=== PATIENT | male | born 1985 ===

== ENCOUNTER 2020-06-22 08:47 | Inpatient (IN) | payer BC ==
[2020-06-22] MEDS ORDERED: MELATONIN 3 MG TABLET PO PRN (10:30)
[2020-06-22] MEDS ORDERED: LOPERAMIDE 2 MG (IMODIUM) TABLET PO PRN (10:30)
[2020-06-22] MEDS ORDERED: CALCIUM CARBONATE 500 MG (TUMS) TAB.CHEW PO PRN (10:30)
[2020-06-22] MEDS ORDERED: FLEET ENEMA ADULT 1 EA BTL PR PRN (10:30)
[2020-06-22] MEDS ORDERED: ONDANSETRON 4 MG (ZOFRAN) ORAL DISSOLVE TAB PO PRN (10:30)
[2020-06-22] MEDS ORDERED: diphenhydrAMINE 25 MG TAB (BENADRYL) PO PRN (10:30)
[2020-06-22] MEDS ORDERED: ACETAMINOPHEN 500 MG TAB (TYLENOL) PO PRN (10:30)
[2020-06-22] MEDS ORDERED: ALPRAZolam 0.25 MG (XANAX) TAB PO PRN (10:30)
[2020-06-22] MEDS ORDERED: BISACODYL 10 MG SUPP (DULCOLAX) PR PRN (10:30)
[2020-06-22] MEDS ORDERED: LACTULOSE SYRUP 10GM/15ML (ENULOSE) 30ML UDC PO PRN (10:30)
[2020-06-22] MEDS ORDERED: guaiFENesin/CODEINE (ROBITUSSIN AC) 10ML UDC PO PRN (10:30)
[2020-06-22 17:17] VITALS: BP 128/84
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
[2020-06-22] MEDS ORDERED: LACTULOSE SYRUP 10GM/15ML (ENULOSE) 30ML UDC PO ONE (18:00)
[2020-06-22] MEDS ORDERED: FLEET ENEMA ADULT 1 EA BTL PR ONE (18:00)
[2020-06-22] MEDS ORDERED: fentaNYL PATCH 12 MCG (DURAGESIC) TD SCH (18:00)
[2020-06-22] MEDS ORDERED: SENNA W/DOCUSATE (SENOKOT S) TABLET PO ONE (18:00)
[2020-06-22] MEDS ORDERED: BISACODYL 10 MG SUPP (DULCOLAX) PR ONE (18:00)
[2020-06-22] MEDS ORDERED: MAGNESIUM CITRATE 300 ML BTL PO PRN (18:00)
[2020-06-22] MEDS: HYDROmorphone (DILAUDID) 2 MG TAB PO PRN (20:27)
[2020-06-22] MEDS: PROPRANOLOL 20 MG (INDERAL) TABLET PO SCH (21:28)
[2020-06-22] MEDS: DOCUSATE SODIUM 100 MG (COLACE) CAP PO SCH (21:28)
[2020-06-22] MEDS: SENNA W/DOCUSATE (SENOKOT S) TABLET PO SCH (21:28)
[2020-06-22] MEDS: GABAPENTIN 600 MG (NEURONTIN) TAB PO SCH (21:28)
[2020-06-22] MEDS: polyethylene glycoL POWDER 17 GM (MIRALAX) PACK PO SCH (21:28)
[2020-06-22] MEDS: traZODone 50 MG (DESYREL) TAB PO SCH (21:28)
[2020-06-23] MEDS: HYDROmorphone (DILAUDID) 2 MG TAB PO PRN ×5 (04:58→23:55)
[2020-06-23 05:32] LABS: BASOPHILS % (AUTO) 1 % (0-10); EOSINOPHILS # (AUTO) 0.2 10^3/uL (0.0-0.3); EOSINOPHILS % (AUTO) 3 % (0-10); HEMATOCRIT 29 % (40-54); HEMOGLOBIN 9.6 g/dL (13.3-17.7); LYMPHOCYTES # (AUTO) 1.7 10^3/uL (1.0-4.0); LYMPHOCYTES % (AUTO) 22 % (12-44); MEAN CORPUSCULAR HEMOGLOBIN 31 pg (25-34); MEAN CORPUSCULAR HGB CONC 34 g/dL (32-36); MEAN CORPUSCULAR VOLUME 92 fL (80-99); MEAN PLATELET VOLUME 9.6 fL (9.0-12.2); MONOCYTES # (AUTO) 1.2 10^3/uL (0.0-1.0); MONOCYTES % (AUTO) 15 % (0-12); NEUTROPHILS # (AUTO) 4.6 10^3/uL (1.8-7.8); NEUTROPHILS % (AUTO) 59 % (42-75); PLATELET COUNT 383 10^3/uL (130-400); WHITE BLOOD COUNT 7.8 10^3/uL (4.3-11.0)
[2020-06-23 05:35] LABS: ALBUMIN 2.8 GM/DL (3.2-4.5)
[2020-06-23 05:36] LABS: CHLORIDE 102 MMOL/L (98-107); POTASSIUM 3.8 MMOL/L (3.6-5.0); SODIUM 138 MMOL/L (135-145)
[2020-06-23 05:37] LABS: CALCIUM 8.5 MG/DL (8.5-10.1)
[2020-06-23 05:38] LABS: GLUCOSE 90 MG/DL (70-105)
[2020-06-23 05:39] LABS: CARBON DIOXIDE 25 MMOL/L (21-32)
[2020-06-23 05:40] LABS: BILIRUBIN,TOTAL 0.9 MG/DL (0.1-1.0)
[2020-06-23 05:41] LABS: ALKALINE PHOSPHATASE 89 U/L (40-136)
[2020-06-23 05:42] LABS: CREATININE SERUM 0.75 MG/DL (0.60-1.30); GFR ESTIMATED > 60
[2020-06-23 05:43] LABS: BUN/CREATININE RATIO 15
[2020-06-23 05:45] LABS: ALANINE AMINOTRANSFERASE 73 U/L (0-55)
[2020-06-23 06:00] VITALS: BP 124/65
[2020-06-23] MEDS: BISACODYL 10 MG SUPP (DULCOLAX) PR SCH (09:00)
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
[2020-06-23] MEDS: GABAPENTIN 600 MG (NEURONTIN) TAB PO SCH ×3 (10:01→20:48)
[2020-06-23] MEDS: DOCUSATE SODIUM 100 MG (COLACE) CAP PO SCH ×2 (10:01→20:47)
[2020-06-23] MEDS: PROPRANOLOL 20 MG (INDERAL) TABLET PO SCH (10:01)
[2020-06-23] MEDS: SENNA W/DOCUSATE (SENOKOT S) TABLET PO SCH ×2 (10:01→20:47)
[2020-06-23] MEDS: polyethylene glycoL POWDER 17 GM (MIRALAX) PACK PO SCH ×2 (10:01→20:48)
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
--- NOTE | 2020-06-23 11:24 | Physical Therapy Daily Note ---
PT Daily Note-Current Subjective Patient in restroom pre tx, agrees to PT, has 9/10 pain in back, gets pain meds during tx. Appearance Patient in room post tx, he is independent in his room. Mental Status Patient Orientation: Person, Place, Situation back brace Transfers SCALE: Activities may be completed with or without assistive devices. 7-Gloqzbqcom-ggggkhp completes the activity by him/herself with no assistance from a helper. 5-Set-up or Clean-up Assistance-helper sets up or cleans up; patient completes activity. [place] assists only prior to or following the activity. 4-Supervision or Touching Assistance-helper provides verbal cues and/or touching/steadying and/or contact guard assistance as patient completes activity. Assistance may be provided throughout the activity or intermittently. 3-Partial/Moderate Assistance-helper does LESS THAN HALF the effort. [place] lifts, holds or supports trunk or limbs, but provides less than half the effort. 2-Substantial/Maximal Assistance-helper does MORE THAN HALF the effort. [place] lifts or holds trunk or limbs and provides more than half the effort. 8-Xhptzjoxg-ttgdir does ALL the effort. Patient does none of the effort to complete the activity. Or, the assistance of 2 or more helpers is required for the patient to complete the activity. If activity was not attempted, code reason: 7-Patient Refused. 9-Not Applicable-not attempted and the patient did not perform the activity before the current illness, exacerbation or injury. 10-Not Attempted due to Environmental Limitations-(lack of equipment, weather restraints, etc.). 88-Not Attempted due to Medical Conditions or Safety Concerns. Sit to Stand (QC): 6 Weight Bearing NWB RUE Gait Training Distance: 250'x2 Walk 10 feet (QC): 6 Walk 50 ft with 2 Turns(QC): 6 Walk 150 ft (QC): 6 Gait Assistive Device: None slow and antalgic ambulation but no LOB or unsteadiness Treatments ambulation Assessment Current Status: Fair Progress improving endurance, slightly SOB and fatigued after ambulating 250' PT Short Term Goals Short Term Goals Time Frame: Jun 30, 2020 Roll Left & Right: 6 Sit to lyin Lying to sitting on side of be: 6 Sit to stand: 6 Chair/sor-dx-afpyh transfer: 6 Walk 10 feet: 6 Walk 50 feet with two turns: 6 Walk 150 feet: 6 1 step (curb): 6 4 steps: 6 12 steps: 6 PT Implementation Analyst Goals Implementation Analyst Goals PT Long-Term Goals Time Frame: Jul 14, 2020 Roll Left & Right (QC): 6 Sit to Lying (QC): 6 Lying-Sitting on Side/Bed(QC): 6 Sit to Stand (QC): 6 Chair/Kya-mx-Bywaq Xfer(QC): 6 Toilet Transfer (QC): 6 Car Transfer (QC): 6 Does the Patient Walk: Yes Walk 10 feet (QC): 6 Walk 50ft with 2 Turns (QC): 6 Walk 150 ft (QC): 6 Walking 10ft on Uneven Surface: 6 1 Step (curb) (QC): 6 4 Steps (QC): 6 12 Steps (QC): 6 Picking up an Object (QC): 88 Wheel 50 feet with 2 turns (QC: 9 Wheel 150 feet: 9 PT Plan Problem List Problem List: Activity Tolerance, Functional Strength, Safety, Balance, Gait, Transfer, ROM Treatment/Plan Treatment Plan: Continue Plan of Care Treatment Plan: Education, Functional Activity Raul, Functional Strength, Group Therapy, Gait, Safety, Therapeutic Exercise, Transfers Treatment Duration: Jul 14, 2020 Frequency: At least 5 of 7 days/Wk (IRF) Estimated Hrs Per Day: 1.5 hours per day Patient and/or Family Agrees t: Yes Safety Risks/Education Patient Education: Gait Training, Transfer Techniques, Correct Positioning, Safety Issues Teaching Recipient: Patient Teaching Methods: Demonstration, Discussion Response to Teaching: Reinforcement Needed Time/GCodes Time In: 1105 Time Out: 1120 Total Billed Treatment Time: 15 Total Billed Treatment 1 visit GT 15' JOHANNY ERICKSON PT Jun 23, 2020 11:24
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
[2020-06-23] MEDS: fentaNYL PATCH 25 MCG (DURAGESIC) TD SCH (14:03)
[2020-06-23] MEDS: PATCH REMOVAL TP SCH (14:11)
[2020-06-23] MEDS: DOCUSATE SODIUM 100 MG (COLACE) CAP PO PRN (14:25)
[2020-06-23 17:17] VITALS: BP 141/82
[2020-06-23] MEDS: traZODone 50 MG (DESYREL) TAB PO SCH (20:48)
[2020-06-23] MEDS: PROPRANOLOL 20 MG (INDERAL) TABLET PO PRN (21:11)
[2020-06-24] MEDS: HYDROmorphone (DILAUDID) 2 MG TAB PO PRN ×5 (04:03→21:00)
[2020-06-24 05:59] VITALS: BP 106/56
[2020-06-24] MEDS: polyethylene glycoL POWDER 17 GM (MIRALAX) PACK PO SCH ×2 (08:28→20:59)
[2020-06-24] MEDS: BISACODYL 10 MG SUPP (DULCOLAX) PR SCH (08:29)
[2020-06-24] MEDS: GABAPENTIN 600 MG (NEURONTIN) TAB PO SCH ×3 (08:29→20:59)
[2020-06-24] MEDS: SENNA W/DOCUSATE (SENOKOT S) TABLET PO SCH ×2 (08:29→20:59)
[2020-06-24] MEDS: DOCUSATE SODIUM 100 MG (COLACE) CAP PO SCH ×2 (08:29→20:59)
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
[2020-06-24] MEDS: DOCUSATE SODIUM 100 MG (COLACE) CAP PO PRN (13:39)
[2020-06-24 17:14] VITALS: BP 129/83
[2020-06-24] MEDS: traZODone 50 MG (DESYREL) TAB PO SCH (20:59)
[2020-06-24] MEDS: PROPRANOLOL 20 MG (INDERAL) TABLET PO PRN (21:01)
[2020-06-25] MEDS: HYDROmorphone (DILAUDID) 2 MG TAB PO PRN ×6 (01:40→21:19)
[2020-06-25 06:00] VITALS: BP 100/58
[2020-06-25] MEDS: SENNA W/DOCUSATE (SENOKOT S) TABLET PO SCH ×2 (08:20→21:18)
[2020-06-25] MEDS: GABAPENTIN 600 MG (NEURONTIN) TAB PO SCH ×3 (08:20→21:18)
[2020-06-25] MEDS: polyethylene glycoL POWDER 17 GM (MIRALAX) PACK PO SCH ×3 (08:21→21:17)
[2020-06-25] MEDS: ACETAMINOPHEN 325 MG TABLET PO PRN ×2 (08:21→14:01)
[2020-06-25] MEDS: DOCUSATE SODIUM 100 MG (COLACE) CAP PO SCH ×2 (08:21→21:18)
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
[2020-06-25] MEDS: BISACODYL 10 MG SUPP (DULCOLAX) PR SCH (09:53)
--- NOTE | 2020-06-25 10:34 | Occupational Ther Daily Note ---
OT Current Status-Daily Note Subjective Pt agreeable to OT tx, and states pain in back with sitting and doing activities, does not give pain rating. Nurse notified of pt's request for pain meds. Per Dr. Castellanos ([facility] Neurosurgeon): wear LSO brace when out of bed (sitting in chair, ambulating, toileting, any weight bearing) Mental Status/Objective Patient Orientation: Person, Place, Time, Situation ADL-Treatment Therapy Code Descriptions/Definitions Functional [place] Measure: 0=Not Assessed/NA 4=Minimal Assistance 1=Total Assistance 5=Supervision or Setup 2=Maximal Assistance 6=Modified [place] 3=Moderate Assistance 7=Complete IndependenceSCALE: Activities may be completed with or without assistive devices. 0-Jsuogzrgaq-frgdfnm completes the activity by him/herself with no assistance from a helper. 5-Set-up or Clean-up Assistance-helper sets up or cleans up; patient completes activity. [place] assists only prior to or following the activity. 4-Supervision or Touching Assistance-helper provides verbal cues and/or touching/steadying and/or contact guard assistance as patient completes activity. Assistance may be provided throughout the activity or intermittently. 3-Partial/Moderate Assistance-helper does LESS THAN HALF the effort. [place] lifts, holds or supports trunk or limbs, but provides less than half the effort. 2-Substantial/Maximal Assistance-helper does MORE THAN HALF the effort. [place] lifts or holds trunk or limbs and provides more than half the effort. 8-Ercwekjad-qxqqyy does ALL the effort. Patient does none of the effort to complete the activity. Or, the assistance of 2 or more helpers is required for the patient to complete the activity. If activity was not attempted, code reason: 7-Patient Refused. 9-Not Applicable-not attempted and the patient did not perform the activity before the current illness, exacerbation or injury. 10-Not Attempted due to Environmental Limitations-(lack of equipment, weather restraints, etc.). 88-Not Attempted due to Medical Conditions or Safety Concerns. Oral Hygiene (QC): 6 (Ind standing at sink) Bathing Location: R Arm, L Upper Leg, R Upper Leg, L Lower Leg (including foot), R Lower Leg (including foot), Chest, Abdomen, Buttocks, Perineal Area Shower/Bathe Self (QC): 3 (Genny, pt able to wash all body parts during sponge bath in shower but required assist for LUE) Upper Body Dressing (QC): 3 (ModA, pt required assist for threading head through and managing LUE through. Pt also required cue to thread affected arm in through first. set up for back brace & sling) Lower Body Dressing (QC): 3 (Genny, pt able to thread pants on and perform pants hike while standing but required assistance for fasteners) On/Off Footwear: 3 (Genny, required assistance adjusting L sock after donning. Pt used figure 4 method and 1 handed technique for donning. Pt able to doff with AE) Toileting Hygiene (QC): 6 (Ind, pt stood at toilet to urinate) Other Treatment Pt began tx supine in bed and agreeable to sponge bath in bathroom. Pt transferred from supine to EOB sitting with no assistance and donned back brace with set up. Pt ambulated to bathroom and doffed clothing and doffed socks with education on dressing stick . Pt performed sponge bath and upon finishing, pt donned clothing and back brace. Pt educated on AD, pt stated that it's easier to do without AD. Pt ambulated towards sink and performed oral hygiene. Pt toileted and ambulated to therapy gym with no break at SBA. In therapy gym, pt participated in armbike exercise for 5min with using his LUE to increase activity tolerance and LUE gross motor strength. Pt then performed pendulum exercise on RUE to increase ROM and to decrease pain & completed x15 reps elbow flexion AROM in sitting.. Pt required skilled cue for pendulums. OT performed gentle PROM on RUE shoulder flexion to approx 45, pt complained of pain. OT felt as though PROM could go further than 45 degrees, but pt would not let OT due to pain. Pt ambulated back to room with needing one rest break at [facility]. Post tx, pt in room with call light in reach and all needs met. Education OT Patient Education: Correct positioning, Energy conservation, Exercise program, Modified ADL techniques, Progress toward Goal/Update tx plan, Purpose of tx/functional activities, Reviewed precautions, Rehab process, Safety issues, Use of adapted equipment Teaching Recipient: Patient Teaching Methods: Demonstration, Discussion Response to Teaching: Verbalize Understanding OT Short Term Goals Short Term Goals Time Frame: Jun 30, 2020 Shower/bathe self: 4 Upper body dressin Lower body dressin Putting on/taking off footwear: 4 OT [facility] Goals Branch Office Manager Goals Time Frame: Jul 07, 2020 Eating (QC): 6 Oral Hygiene (QC): 6 Toileting Hygiene (QC): 6 Shower/Bathe Self (QC): 6 Upper Body Dressing (QC): 6 Lower Body Dressing (QC): 6 On/Off Footwear (QC): 6 Additional Goals: 1-Demonstrate ADL Tasks, 2-Verbalize Understanding, 3-Improve Strength/Raul 1=Demonstrate adherence to instructed precautions during ADL tasks. 2=Patient will verbalize/demonstrate understanding of assistive devices/modifications for ADL. 3=Patient will improve strength/tolerance for activity to enable patient to pe rform ADL's. OT Education/Plan Problem List/Assessment Assessment: Decreased Activ Tolerance, Decreased UE Strength, Impaired Funct Balance, Impaired I ADL's, Impaired Self-Care Skills, Restricted Funct UE ROM Pt would benefit from skilled OT to increase his independence in basic self care to allow him to safely return home to live alone Discharge Recommendations Plan/Recommendations: Continue POC Treatment Plan/Plan of Care Patient would benefit from OT for education, treatment and training to promote independence in ADL's, mobility, safety and/or upper extremity function for ADL's. Plan of Care: ADL Retraining, Functional Mobility, Group Exercise/Act as Ind (activity tolerance, fuunct mobility, strengthening, socialization), UE Funct Exercise/Act, UE Neuromus Re-Ed/Coord Treatment Duration: Jul 07, 2020 Frequency: 5 times per week Estimated Hrs Per Day: 1.5 hours per day Rehab Potential: Good Time/GCodes Start Time: 09:00 Stop Time: 10:20 Total Time Billed (hr/min): 80 Billed Treatment Time 1, ADL 3 (50'), EX 2 (30') DENISE CARIAS OT Jun 25, 2020 10:34
--- NOTE | 2020-06-25 13:58 | Physical Therapy Daily Note ---
PT Daily Note-Current Subjective Pt. c/o pain in right shoulder at 11/10, requested pain meds after AM RX. minimal back pain. Agrees to AM and PM Rx Pain Numeric Pain Scale: 7 Location: Right Location Body Site: Shoulder Pain Description: Throbbing Mental Status Patient Orientation: Normal For Age Attachments: Other-See Comments (back brace, mask) Transfers SCALE: Activities may be completed with or without assistive devices. 4-Preikjulvx-sfpjsud completes the activity by him/herself with no assistance from a helper. 5-Set-up or Clean-up Assistance-helper sets up or cleans up; patient completes activity. [place] assists only prior to or following the activity. 4-Supervision or Touching Assistance-helper provides verbal cues and/or touching/steadying and/or contact guard assistance as patient completes activity. Assistance may be provided throughout the activity or intermittently. 3-Partial/Moderate Assistance-helper does LESS THAN HALF the effort. [place] lifts, holds or supports trunk or limbs, but provides less than half the effort. 2-Substantial/Maximal Assistance-helper does MORE THAN HALF the effort. [place] lifts or holds trunk or limbs and provides more than half the effort. 9-Pknmdpnqf-sszpoj does ALL the effort. Patient does none of the effort to comp lete the activity. Or, the assistance of 2 or more helpers is required for the patient to complete the activity. If activity was not attempted, code reason: 7-Patient Refused. 9-Not Applicable-not attempted and the patient did not perform the activity before the current illness, exacerbation or injury. 10-Not Attempted due to Environmental Limitations-(lack of equipment, weather restraints, etc.). 88-Not Attempted due to Medical Conditions or Safety Concerns. Roll Left & Right (QC): 6 Sit to Lying (QC): 6 Lying to Sitting/Side of Bed(Q: 6 Sit to Stand (QC): 6 Chair/Olo-wv-Pkvle Xfer(QC): 6 Toilet Transfer (QC): 6 Car Transfer (QC): 6 Weight Bearing NWB RUE Gait Training Walk 150 ft (QC): 6 Gait Persons Needed: 0 Gait Assistive Device: None very slow gait 200ft, 150ft x3 100ft, decreased step length ,stop for standing rest breaks at times, no LOB Stair Training Stair Training: Handrails/: 1 handrail #of Steps: 4 1 Step (curb) (QC): 4 4 Steps (QC): 4 Stairs: Pattern: Reciprocal Exercises Seated Therapy Exercises: Ankle pumps, Sit to stand, Long arc quads, Hip flexion Seated Reps: 20 Standing: Hip Abduction, Hamstring curls, Heel/toe raises, Marching, Mini squats Standing Reps: 15 NuStep Minutes: 10 NuStep Workload: 5 Treatments toileted indep x 2 Assessment Current Status: Good Progress PT Short Term Goals Short Term Goals Time Frame: Jun 30, 2020 Roll Left & Right: 6 Sit to lyin Lying to sitting on side of be: 6 Sit to stand: 6 Chair/syi-rw-idmwz transfer: 6 Walk 10 feet: 6 Walk 50 feet with two turns: 6 Walk 150 feet: 6 1 step (curb): 6 4 steps: 6 12 steps: 6 PT Fci Goals Fci Goals PT Retail Coverage Merchandiser Lead Goals Time Frame: Jul 14, 2020 Roll Left & Right (QC): 6 Sit to Lying (QC): 6 Lying-Sitting on Side/Bed(QC): 6 Sit to Stand (QC): 6 Chair/Kjj-hc-Udexu Xfer(QC): 6 Toilet Transfer (QC): 6 Car Transfer (QC): 6 Does the Patient Walk: Yes Walk 10 feet (QC): 6 Walk 50ft with 2 Turns (QC): 6 Walk 150 ft (QC): 6 Walking 10ft on Uneven Surface: 6 1 Step (curb) (QC): 6 4 Steps (QC): 6 12 Steps (QC): 6 Picking up an Object (QC): 88 Wheel 50 feet with 2 turns (QC: 9 Wheel 150 feet: 9 PT Plan Treatment/Plan Treatment Plan: Continue Plan of Care Treatment Plan: Education, Functional Activity Raul, Functional Strength, Group Therapy, Gait, Safety, Therapeutic Exercise, Transfers Treatment Duration: Jul 14, 2020 Frequency: At least 5 of 7 days/Wk (IRF) Estimated Hrs Per Day: 1.5 hours per day Patient and/or Family Agrees t: Yes Safety Risks/Education Patient Education: Gait Training, Transfer Techniques, Steps, Correct Positioning, Disease Process, Safety Issues Teaching Recipient: Patient Teaching Methods: Demonstration, Discussion Response to Teaching: Verbalize Understanding, Return Demonstration Time/GCodes Time In: 1130 (1300) Time Out: 1215 (1345) Total Billed Treatment Time: 90 Total Billed Treatment 1x2, GT30m,FA30m,EX30m 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
[2020-06-25] MEDS: DOCUSATE SODIUM 100 MG (COLACE) CAP PO PRN (14:00)
[2020-06-25 17:47] VITALS: BP 130/73
[2020-06-25] MEDS: traZODone 50 MG (DESYREL) TAB PO SCH (21:18)
[2020-06-25] MEDS: PROPRANOLOL 20 MG (INDERAL) TABLET PO PRN (21:22)
[2020-06-26] MEDS: HYDROmorphone (DILAUDID) 2 MG TAB PO PRN ×6 (02:25→21:27)
[2020-06-26 05:12] VITALS: BP 107/51
[2020-06-26] MEDS: DOCUSATE SODIUM 100 MG (COLACE) CAP PO SCH ×2 (08:09→21:27)
[2020-06-26] MEDS: GABAPENTIN 600 MG (NEURONTIN) TAB PO SCH ×3 (08:09→21:25)
[2020-06-26] MEDS: polyethylene glycoL POWDER 17 GM (MIRALAX) PACK PO SCH ×2 (08:09→21:25)
[2020-06-26] MEDS: BISACODYL 10 MG SUPP (DULCOLAX) PR SCH (08:09)
[2020-06-26] MEDS: SENNA W/DOCUSATE (SENOKOT S) TABLET PO SCH ×2 (08:09→21:26)
--- NOTE | 2020-06-26 09:01 | Occupational Ther Daily Note ---
OT Current Status-Daily Note Subjective Pt reports 8/10 pain in R shoulder. Nursing in room stated next available time for pain medication. Pain Numeric Pain Scale: 8 Location: Right Location Body Site: Shoulder Mental Status/Objective Patient Orientation: Person, Place, Time, Situation ADL-Treatment Therapy Code Descriptions/Definitions Functional [place] Measure: 0=Not Assessed/NA 4=Minimal Assistance 1=Total Assistance 5=Supervision or Setup 2=Maximal Assistance 6=Modified [place] 3=Moderate Assistance 7=Complete IndependenceSCALE: Activities may be completed with or without assistive devices. 8-Bshoocgrcp-vjudual completes the activity by him/herself with no assistance from a helper. 5-Set-up or Clean-up Assistance-helper sets up or cleans up; patient completes activity. [place] assists only prior to or following the activity. 4-Supervision or Touching Assistance-helper provides verbal cues and/or touching/steadying and/or contact guard assistance as patient completes a ctivity. Assistance may be provided throughout the activity or intermittently. 3-Partial/Moderate Assistance-helper does LESS THAN HALF the effort. [place] lifts, holds or supports trunk or limbs, but provides less than half the effort. 2-Substantial/Maximal Assistance-helper does MORE THAN HALF the effort. [place] lifts or holds trunk or limbs and provides more than half the effort. 5-Wznxygywa-zpviwc does ALL the effort. Patient does none of the effort to complete the activity. Or, the assistance of 2 or more helpers is required for the patient to complete the activity. If activity was not attempted, code reason: 7-Patient Refused. 9-Not Applicable-not attempted and the patient did not perform the activity before the current illness, exacerbation or injury. 10-Not Attempted due to Environmental Limitations-(lack of equipment, weather restraints, etc.). 88-Not Attempted due to Medical Conditions or Safety Concerns. Oral Hygiene (QC): 6 (Ind standing at sink) Upper Body Dressing (QC): 3 (Genny, donned back brace required assistance to tighten back brace. Independent with sling) Lower Body Dressing (QC): 3 (Genny, able to thread pants and perform pants hike, required assistance for fasteners) Other Treatment OT tx ([id number]) Pt began tx supine in bed and transferred to EOB sitting with no assistance. Pt donned back brace and pants then ambulated to bathroom to perform oral hygiene. Upon finishing, pt ambulated to therapy gym and needed 1 rest break. In gym, pt completed pendulum exercises using his RUE to increase ROM and decrease pain. OT provided pt with written HEP for pendulums. Then OT performed gentle PROM on pt's R shoulder to increase ROM and decrease pain while pt laying on mat. Pt performed AROM x15 reps elbow flexion/extension, wrist flexion/extension, circles, and employee communications specialist squeezes with heavy resistance sponge. Pt completed arm bike exercise for 10 min with his L arm with minimal resistance to increase gross motor strength and activity tolerance. Pt ambulated to kitchen area in commons area to complete beltre bag finding activity. Pt required 1 rest break before activity and 1 during to complete opening cabinets and drawers to retrieve beltre bags to increase AROM on LUE, decrease pain, increase activity tolerance, and to focus on functional task in kitchen and functional reaching. Pt was educated on using territory supervisor to retrieve bags from lower cabinets to not break spinal precautions of bending past 90 degrees. Pt agrees and uses territory supervisor for lower areas. PT/OT cotreat due to skill of 2 clinicians required which a commercial kitchen service technician could not perform in order to coordinate UE/LEs, and due to pt's limitations in activity tolerance, mobility, dynamic balance, and to decrease fall risk. OT focused on UE placement, cues for sequencing and safety, while PT focused on LE placement, gross overall movement, and standing balance([id number]) After taking rest break, pt ambulated to therapy gym to participate in balloon activity to increase activity tolerance and decrease pain. Pt completed activity with no rest breaks. Pt in therapy gym, post tx, with PT in room, and all needs met. Education OT Patient Education: Correct positioning, Energy conservation, Modified ADL techniques, Progress toward Goal/Update tx plan, Purpose of tx/functional activities, Reviewed precautions, Rehab process, Safety issues, Use of adapted equipment Teaching Recipient: Patient Teaching Methods: Discussion Response to Teaching: Verbalize Understanding OT Short Term Goals Short Term Goals Time Frame: Jun 30, 2020 Shower/bathe self: 4 Upper body dressin Lower body dressin Putting on/taking off footwear: 4 OT Residential Goals Residential Goals Time Frame: Jul 07, 2020 Eating (QC): 6 Oral Hygiene (QC): 6 Toileting Hygiene (QC): 6 Shower/Bathe Self (QC): 6 Upper Body Dressing (QC): 6 Lower Body Dressing (QC): 6 On/Off Footwear (QC): 6 Additional Goals: 1-Demonstrate ADL Tasks, 2-Verbalize Understanding, 3- ImproveStrength/Raul 1=Demonstrate adherence to instructed precautions during ADL tasks. 2=Patient will verbalize/demonstrate understanding of assistive devices/modifications for ADL. 3=Patient will improve strength/tolerance for activity to enable patient to perform ADL's. OT Education/Plan Problem List/Assessment Assessment: Decreased Activ Tolerance, Decreased UE Strength, Impaired Bed Mobility, Impaired Funct Balance, Impaired I ADL's, Impaired Self-Care Skills, Restricted Funct UE ROM Pt would benefit from skilled OT to increase his independence in basic self care to allow him to safely return home to live alone Discharge Recommendations Plan/Recommendations: Continue POC Treatment Plan/Plan of Care Patient would benefit from OT for education, treatment and training to promote independence in ADL's, mobility, safety and/or upper extremity function for ADL's. Plan of Care: ADL Retraining, Functional Mobility, Group Exercise/Act as Ind (activity tolerance, fuunct mobility, strengthening, socialization), UE Funct Exercise/Act, UE Neuromus Re-Ed/Coord Treatment Duration: Jul 07, 2020 Frequency: 5 times per week Estimated Hrs Per Day: 1.5 hours per day Rehab Potential: Good Time/GCodes Start Time: 08:00 Stop Time: 09:30 Total Time Billed (hr/min): 90 Billed Treatment Time OT tx ([id number]) PT/OT cotreat ([id number]) 1, ADL (20'), EX 3 (40'), FA 2 (30') DENISE CARIAS OT Jun 26, 2020 09:01
--- NOTE | 2020-06-26 11:06 | Physical Therapy Daily Note ---
PT Daily Note-Current Subjective Pt sitting in Therapy Commons working with OT upon arrival. Pt agrees to short co-treat w/OT then tx with PT. Pain Numeric Pain Scale: 8 Location Body Site: Back Pain Description: Ache Mental Status Patient Orientation: Person, Place, Time, Situation Attachments: Other-See Comments (Lumbar Brace) Transfers SCALE: Activities may be completed with or without assistive devices. 3-Glmqovsbup-lyteuoa completes the activity by him/herself with no assistance from a helper. 5-Set-up or Clean-up Assistance-helper sets up or cleans up; patient completes activity. [place] assists only prior to or following the activity. 4-Supervision or Touching Assistance-helper provides verbal cues and/or touching/steadying and/or contact guard assistance as patient completes act ivity. Assistance may be provided throughout the activity or intermittently. 3-Partial/Moderate Assistance-helper does LESS THAN HALF the effort. [place] lifts, holds or supports trunk or limbs, but provides less than half the effort. 2-Substantial/Maximal Assistance-helper does MORE THAN HALF the effort. [place] lifts or holds trunk or limbs and provides more than half the effort. 0-Fzkdjosiz-xvrtca does ALL the effort. Patient does none of the effort to complete the activity. Or, the assistance of 2 or more helpers is required for the patient to complete the activity. If activity was not attempted, code reason: 7-Patient Refused. 9-Not Applicable-not attempted and the patient did not perform the activity before the current illness, exacerbation or injury. 10-Not Attempted due to Environmental Limitations-(lack of equipment, weather restraints, etc.). 88-Not Attempted due to Medical Conditions or Safety Concerns. Sit to Stand (QC): 5 Weight Bearing Full Weight Bearing Full Weight Bearing NWB RUE Gait Training Does the Patient Walk?: Yes Distance: 75', 250' x2 Walk 10 feet (QC): 5 Walk 50 ft with 2 Turns(QC): 5 Walk 150 ft (QC): 5 Gait Persons Needed: 1 Gait Assistive Device: None Wheelchair Training Does the Pt Use a Wheelchair?: No Exercises Standing: Hip Abduction, Hamstring curls, Heel/toe raises, Marching, Mini squats, Sit to Stand Standing Reps: 15 Treatments PT/OT cotreat due to skill of 2 clinicians required which a rehab spec could not perform in order to coordinate UE/LEs, and due to pt's limitations in activity tolerance, mobility, dynamic balance, and to decrease fall risk. OT focused on UE placement, cues for sequencing and safety, while PT focused on LE placement, gross overall movement, and standing balance([id number]) After taking rest break, pt ambulated to therapy gym to participate in balloon activity to increase activity tolerance and decrease pain. Pt completed activity with no rest breaks. Pt in therapy gym, post tx, with PT in room, OT departs and pt continues tx with PT. Pt completes Standing Ex at //bars with multiple RB. Pt amb. in hallway before returning to room to rest. All needs met, pt Ad doreen in room. Assessment Current Status: Good Progress Pt is limited by pain and fatigue at this time. Pt needs RB and pain responses to medicine but still noticeable. PT Short Term Goals Short Term Goals Time Frame: Jun 30, 2020 Roll Left & Right: 6 Sit to lyin Lying to sitting on side of be: 6 Sit to stand: 6 Chair/owz-az-bupmr transfer: 6 Walk 10 feet: 6 Walk 50 feet with two turns: 6 Walk 150 feet: 6 1 step (curb): 6 4 steps: 6 12 steps: 6 PT Billboard Erector Goals Custodial Goals PT Custodial Goals Time Frame: Jul 14, 2020 Roll Left & Right (QC): 6 Sit to Lying (QC): 6 Lying-Sitting on Side/Bed(QC): 6 Sit to Stand (QC): 6 Chair/Ubc-ay-Nckyw Xfer(QC): 6 Toilet Transfer (QC): 6 Car Transfer (QC): 6 Does the Patient Walk: Yes Walk 10 feet (QC): 6 Walk 50ft with 2 Turns (QC): 6 Walk 150 ft (QC): 6 Walking 10ft on Uneven Surface: 6 1 Step (curb) (QC): 6 4 Steps (QC): 6 12 Steps (QC): 6 Picking up an Object (QC): 88 Wheel 50 feet with 2 turns (QC: 9 Wheel 150 feet: 9 PT Plan Problem List Problem List: Activity Tolerance, Gait Treatment/Plan Treatment Plan: Continue Plan of Care Treatment Plan: Education, Functional Activity Raul, Functional Strength, Group Therapy, Gait, Safety, Therapeutic Exercise, Transfers Treatment Duration: Jul 14, 2020 Frequency: At least 5 of 7 days/Wk (IRF) Estimated Hrs Per Day: 1.5 hours per day Patient and/or Family Agrees t: Yes Safety Risks/Education Patient Education: Correct Positioning, Safety Issues Teaching Recipient: Patient Teaching Methods: Discussion Response to Teaching: Verbalize Understanding Time/GCodes Time In: 915 Time Out: 1015 Total Billed Treatment Time: 60 Total Billed Treatment 1, FA (15m), EX x2 (25m) & GT (20m) Co-treat w/OT for 15m EDIS GONSALVES MANAGER CARDIOLOGY Jun 26, 2020 11:06
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
[2020-06-26] MEDS: fentaNYL PATCH 25 MCG (DURAGESIC) TD SCH (13:15)
[2020-06-26] MEDS: PATCH REMOVAL TP SCH (13:17)
[2020-06-26] MEDS: DOCUSATE SODIUM 100 MG (COLACE) CAP PO PRN (13:21)
--- NOTE | 2020-06-26 15:22 | Physical Therapy Daily Note ---
PT Daily Note-Current Subjective Pt laying Supine in bed upon arrival. Pt agrees to PT. Pain Numeric Pain Scale: 7 Location Body Site: Back Pain Description: Ache Mental Status Patient Orientation: Person, Place, Time, Situation Attachments: Other-See Comments (Lumbar Brace) Transfers SCALE: Activities may be completed with or without assistive devices. 5-Bdejufzqmq-gqrtpon completes the activity by him/herself with no assistance from a helper. 5-Set-up or Clean-up Assistance-helper sets up or cleans up; patient completes activity. [place] assists only prior to or following the activity. 4-Supervision or Touching Assistance-helper provides verbal cues and/or to uching/steadying and/or contact guard assistance as patient completes activity. Assistance may be provided throughout the activity or intermittently. 3-Partial/Moderate Assistance-helper does LESS THAN HALF the effort. [place] lifts, holds or supports trunk or limbs, but provides less than half the effort. 2-Substantial/Maximal Assistance-helper does MORE THAN HALF the effort. [place] lifts or holds trunk or limbs and provides more than half the effort. 7-Lqtwaqmkq-jgopuy does ALL the effort. Patient does none of the effort to complete the activity. Or, the assistance of 2 or more helpers is required for the patient to complete the activity. If activity was not attempted, code reason: 7-Patient Refused. 9-Not Applicable-not attempted and the patient did not perform the activity before the current illness, exacerbation or injury. 10-Not Attempted due to Environmental Limitations-(lack of equipment, weather restraints, etc.). 88-Not Attempted due to Medical Conditions or Safety Concerns. Lying to Sitting/Side of Bed(Q: 6 Sit to Stand (QC): 6 Weight Bearing Full Weight Bearing Full Weight Bearing NWB RUE Gait Training Does the Patient Walk?: Yes Distance: 150' x2 Walk 10 feet (QC): 5 Walk 50 ft with 2 Turns(QC): 5 Walk 150 ft (QC): 5 Gait Persons Needed: 1 Gait Assistive Device: None Exercises NuStep Minutes: 13 NuStep Workload: 4 Treatments Pt transfers to standing and amb. in hallway. Pt uses NuStep for 13m at WL 4. Pt takes short RB then returns to room. All needs met. Assessment Current Status: Good Progress Pt has improved with mobility and pain decreases with tight lumbar brace for support and pain medicine. PT Short Term Goals Short Term Goals Time Frame: Jun 30, 2020 Roll Left & Right: 6 Sit to lyin Lying to sitting on side of be: 6 Sit to stand: 6 Chair/aen-es-qmzxh transfer: 6 Walk 10 feet: 6 Walk 50 feet with two turns: 6 Walk 150 feet: 6 1 step (curb): 6 4 steps: 6 12 steps: 6 PT Electronic Data Interchange Specialist Goals Usp Goals PT Usp Goals Time Frame: Jul 14, 2020 Roll Left & Right (QC): 6 Sit to Lying (QC): 6 Lying-Sitting on Side/Bed(QC): 6 Sit to Stand (QC): 6 Chair/Xtv-yl-Qgjgt Xfer(QC): 6 Toilet Transfer (QC): 6 Car Transfer (QC): 6 Does the Patient Walk: Yes Walk 10 feet (QC): 6 Walk 50ft with 2 Turns (QC): 6 Walk 150 ft (QC): 6 Walking 10ft on Uneven Surface: 6 1 Step (curb) (QC): 6 4 Steps (QC): 6 12 Steps (QC): 6 Picking up an Object (QC): 88 Wheel 50 feet with 2 turns (QC: 9 Wheel 150 feet: 9 PT Plan Problem List Problem List: Activity Tolerance Treatment/Plan Treatment Plan: Continue Plan of Care Treatment Plan: Education, Functional Activity Raul, Functional Strength, Group Therapy, Gait, Safety, Therapeutic Exercise, Transfers Treatment Duration: Jul 14, 2020 Frequency: At least 5 of 7 days/Wk (IRF) Estimated Hrs Per Day: 1.5 hours per day Patient and/or Family Agrees t: Yes Safety Risks/Education Patient Education: Reviewed Don/Doff Brace Teaching Recipient: Patient Teaching Methods: Discussion Response to Teaching: Verbalize Understanding Time/GCodes Time In: 1345 Time Out: 1415 Total Billed Treatment Time: 30 Total Billed Treatment 1, GT (15m) & EX (15m) EDIS GONSALVES RECEIVER Jun 26, 2020 15:22
[2020-06-26 17:12] VITALS: BP 121/67
[2020-06-26] MEDS: traZODone 50 MG (DESYREL) TAB PO SCH (21:25)
[2020-06-26] MEDS: PROPRANOLOL 20 MG (INDERAL) TABLET PO PRN (21:27)
[2020-06-27] MEDS: ACETAMINOPHEN 325 MG TABLET PO PRN ×4 (00:20→22:44)
[2020-06-27] MEDS: HYDROmorphone (DILAUDID) 2 MG TAB PO PRN ×7 (00:47→20:19)
[2020-06-27 05:03] VITALS: BP 104/59
[2020-06-27] MEDS: DOCUSATE SODIUM 100 MG (COLACE) CAP PO SCH ×2 (08:12→20:19)
[2020-06-27] MEDS: SENNA W/DOCUSATE (SENOKOT S) TABLET PO SCH ×2 (08:12→20:18)
[2020-06-27] MEDS: GABAPENTIN 600 MG (NEURONTIN) TAB PO SCH ×3 (08:12→20:19)
[2020-06-27] MEDS: BISACODYL 10 MG SUPP (DULCOLAX) PR SCH (08:13)
[2020-06-27] MEDS: polyethylene glycoL POWDER 17 GM (MIRALAX) PACK PO SCH ×2 (08:13→20:18)
--- NOTE | 2020-06-27 10:43 | Occupational Ther Daily Note ---
OT Current Status-Daily Note Subjective Pt reported 8/10 pain rating while nursing in room, pt given pain medication by nursing during tx. Mental Status/Objective Patient Orientation: Person, Place, Time, Situation ADL-Treatment Therapy Code Descriptions/Definitions Functional [place] Measure: 0=Not Assessed/NA 4=Minimal Assistance 1=Total Assistance 5=Supervision or Setup 2=Maximal Assistance 6=Modified [place] 3=Moderate Assistance 7=Complete IndependenceSCALE: Activities may be completed with or without assistive devices. 7-Trbthubewl-dhplyge completes the activity by him/herself with no assistance from a helper. 5-Set-up or Clean-up Assistance-helper sets up or cleans up; patient completes activity. [place] assists only prior to or following the activity. 4-Supervision or Touching Assistance-helper provides verbal cues and/or touching/steadying and/or contact guard assistance as patient completes activity. Assistance may be provided throughout the activity or intermittently. 3-Partial/Moderate Assistance-helper does LESS THAN HALF the effort. [place] lifts, holds or supports trunk or limbs, but provides less than half the effort. 2-Substantial/Maximal Assistance-helper does MORE THAN HALF the effort. [place] lifts or holds trunk or limbs and provides more than half the effort. 4-Zavvyjpzq-ozkfot does ALL the effort. Patient does none of the effort to complete the activity. Or, the assistance of 2 or more helpers is required for the patient to complete the activity. If activity was not attempted, code reason: 7-Patient Refused. 9-Not Applicable-not attempted and the patient did not perform the activity before the current illness, exacerbation or injury. 10-Not Attempted due to Environmental Limitations-(lack of equipment, weather restraints, etc.). 88-Not Attempted due to Medical Conditions or Safety Concerns. Bathing Location: L Arm, L Upper Leg, R Upper Leg, L Lower Leg (including foot), R Lower Leg (including foot), Chest, Abdomen, Buttocks, Perineal Area Shower/Bathe Self (QC): 3 (Genny, assistance required to wash R arm due to precautions of L arm. Pt educated on using long handled sponge to wash R arm) Upper Body Dressing (QC): 3 (Genny, pt able to doff shirt with education on doffing affected arm out first. pt donned shirt with a cue to don affected arm in first. assistance to adjust shirt around L armpit. Genny to don back brace ) Lower Body Dressing (QC): 5 (Set up) On/Off Footwear: 4 (SBA, required cues to not bend and break spinal precautions) Other Treatment Pt began tx sitting EOB. Pt agreed to shower and ambulated to shower. Pt doffed clothing and completed shower. Once finishing shower, pt donned clothing, back brace and sling. Pt required minimal assistance to tighten back brace. Pt stated the need for shoe horn to don shoes instead of using butt sawyer, OT stated that he could have one. Pt ambulated to therapy gym. In gym, pt educated on different ways to independently don back brace and tighten, pt trialed various methods, but no method worked to pt's liking. OT informed pt she would attempt to think of different solutions. Pt sat on mat and transferred to supine and OT performed gentle PROM on L arm, completing shoulder flexion, abduction, and external rotation. Pt completed AROM on elbow flexion. This exercise is to increase ROM, and decrease pain and stiffness. Pt ambulated back to room and sat EOB with call light in reach and all needs met. Education OT Patient Education: Correct positioning, Modified ADL techniques, Progress toward Goal/Update tx plan, Purpose of tx/functional activities, Reviewed precautions, Rehab process, Safety issues, Use of adapted equipment Teaching Recipient: Patient Teaching Methods: Discussion Response to Teaching: Verbalize Understanding OT Short Term Goals Short Term Goals Time Frame: Jun 30, 2020 Shower/bathe self: 4 Upper body dressin Lower body dressin Putting on/taking off footwear: 4 OT Chcf Goals Chcf Goals Time Frame: Jul 07, 2020 Eating (QC): 6 Oral Hygiene (QC): 6 Toileting Hygiene (QC): 6 Shower/Bathe Self (QC): 6 Upper Body Dressing (QC): 6 Lower Body Dressing (QC): 6 On/Off Footwear (QC): 6 Additional Goals: 1-Demonstrate ADL Tasks, 2-Verbalize Understanding, 3- ImproveStrength/Raul 1=Demonstrate adherence to instructed precautions during ADL tasks. 2=Patient will verbalize/demonstrate understanding of assistive devices/modifications for ADL. 3=Patient will improve strength/tolerance for activity to enable patient to perform ADL's. OT Education/Plan Problem List/Assessment Assessment: Decreased Activ Tolerance, Decreased Safety Aware, Decreased UE Strength, Impaired Coordination, Impaired I ADL's, Impaired Self-Care Skills Pt would benefit from skilled OT to increase his independence in basic self care to allow him to safely return home to live alone Discharge Recommendations Plan/Recommendations: Continue POC Treatment Plan/Plan of Care Patient would benefit from OT for education, treatment and training to promote independence in ADL's, mobility, safety and/or upper extremity function for ADL's. Plan of Care: ADL Retraining, Functional Mobility, Group Exercise/Act as Ind (activity tolerance, fuunct mobility, strengthening, socialization), UE Funct Exercise/Act, UE Neuromus Re-Ed/Coord Treatment Duration: Jul 07, 2020 Frequency: 5 times per week Estimated Hrs Per Day: 1.5 hours per day Rehab Potential: Good Time/GCodes Start Time: 09:00 Stop Time: 10:30 Total Time Billed (hr/min): 90 Billed Treatment Time 1, ADL 4 (60), EX 2 (30') DENISE CARIAS OT Jun 27, 2020 10:43
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
--- NOTE | 2020-06-27 12:11 | Physical Therapy Daily Note ---
PT Daily Note-Current Subjective Pt sitting up in bed upon arrival. Pt agrees to PT. Pain Numeric Pain Scale: 7 Location Body Site: Back Pain Description: Ache Mental Status Patient Orientation: Person, Place, Time, Situation Attachments: Other-See Comments (Lumbar Brace) Transfers SCALE: Activities may be completed with or without assistive devices. 0-Ppsluelbcq-cbleduw completes the activity by him/herself with no assistance from a helper. 5-Set-up or Clean-up Assistance-helper sets up or cleans up; patient completes activity. [place] assists only prior to or following the activity. 4-Supervision or Touching Assistance-helper provides verbal cues and/or touch ing/steadying and/or contact guard assistance as patient completes activity. Assistance may be provided throughout the activity or intermittently. 3-Partial/Moderate Assistance-helper does LESS THAN HALF the effort. [place] lifts, holds or supports trunk or limbs, but provides less than half the effort. 2-Substantial/Maximal Assistance-helper does MORE THAN HALF the effort. [place] lifts or holds trunk or limbs and provides more than half the effort. 8-Tvlhhoqch-winvoh does ALL the effort. Patient does none of the effort to complete the activity. Or, the assistance of 2 or more helpers is required for the patient to complete the activity. If activity was not attempted, code reason: 7-Patient Refused. 9-Not Applicable-not attempted and the patient did not perform the activity before the current illness, exacerbation or injury. 10-Not Attempted due to Environmental Limitations-(lack of equipment, weather restraints, etc.). 88-Not Attempted due to Medical Conditions or Safety Concerns. Lying to Sitting/Side of Bed(Q: 6 Sit to Stand (QC): 6 Weight Bearing Full Weight Bearing Full Weight Bearing NWB RUE Gait Training Does the Patient Walk?: Yes Distance: 350' Walk 10 feet (QC): 6 Walk 50 ft with 2 Turns(QC): 6 Walk 150 ft (QC): 6 Gait Persons Needed: 1 Gait Assistive Device: None Wheelchair Training Does the Pt Use a Wheelchair?: No Stair Training Stair Training: Handrails/: 2 handrails #of Steps: 12 1 Step (curb) (QC): 6 4 Steps (QC): 6 12 Steps (QC): 6 Stairs: Pattern: Reciprocal Treatments Practices donning/doffing brace so pt might be able to independently. TF to standing and uses BR before leaving room. Amb in hallway. Amb stairs then takes short RB. Pt amb in hallway before returning to room. All needs met. Assessment Current Status: Good Progress Pt jesus. tx well, just needs to be able to don brace independently. PT Short Term Goals Short Term Goals Time Frame: Jun 30, 2020 Roll Left & Right: 6 Sit to lyin Lying to sitting on side of be: 6 Sit to stand: 6 Chair/psv-vi-molbt transfer: 6 Walk 10 feet: 6 Walk 50 feet with two turns: 6 Walk 150 feet: 6 1 step (curb): 6 4 steps: 6 12 steps: 6 PT Intermediate Goals Intermediate Goals PT Auto Leasing Manager Goals Time Frame: Jul 14, 2020 Roll Left & Right (QC): 6 Sit to Lying (QC): 6 Lying-Sitting on Side/Bed(QC): 6 Sit to Stand (QC): 6 Chair/Vpw-vf-Urtos Xfer(QC): 6 Toilet Transfer (QC): 6 Car Transfer (QC): 6 Does the Patient Walk: Yes Walk 10 feet (QC): 6 Walk 50ft with 2 Turns (QC): 6 Walk 150 ft (QC): 6 Walking 10ft on Uneven Surface: 6 1 Step (curb) (QC): 6 4 Steps (QC): 6 12 Steps (QC): 6 Picking up an Object (QC): 88 Wheel 50 feet with 2 turns (QC: 9 Wheel 150 feet: 9 PT Plan Treatment/Plan Treatment Plan: Continue Plan of Care Treatment Plan: Education, Functional Activity Raul, Functional Strength, Group Therapy, Gait, Safety, Therapeutic Exercise, Transfers Treatment Duration: Jul 14, 2020 Frequency: At least 5 of 7 days/Wk (IRF) Estimated Hrs Per Day: 1.5 hours per day Patient and/or Family Agrees t: Yes Safety Risks/Education Patient Education: Steps, Correct Positioning, Reviewed Don/Doff Brace, Safety Issues Teaching Recipient: Patient Teaching Methods: Discussion Response to Teaching: Verbalize Understanding Time/GCodes Time In: 1100 Time Out: 1200 Total Billed Treatment Time: 60 Total Billed Treatment 1, FA x2 (30m) & GT x2 (30m) EDIS GONSALVES [employer] Jun 27, 2020 12:11
[2020-06-27] MEDS: PROPRANOLOL 20 MG (INDERAL) TABLET PO PRN ×2 (12:51→20:20)
[2020-06-27] MEDS: DOCUSATE SODIUM 100 MG (COLACE) CAP PO PRN (12:52)
--- NOTE | 2020-06-27 14:39 | Physical Therapy Daily Note ---
PT Daily Note-Current Subjective Pt laying Supine in bed upon arrival. Pt agrees to PT. Pain Numeric Pain Scale: 7 Location Body Site: Back Pain Description: Ache Mental Status Patient Orientation: Person, Place, Time, Situation Attachments: Other-See Comments (Lumbar Brace) Transfers SCALE: Activities may be completed with or without assistive devices. 9-Bwulnkdain-jyfuzcd completes the activity by him/herself with no assistance from a helper. 5-Set-up or Clean-up Assistance-helper sets up or cleans up; patient completes activity. [place] assists only prior to or following the activity. 4-Supervision or Touching Assistance-helper provides verbal cues and/or to uching/steadying and/or contact guard assistance as patient completes activity. Assistance may be provided throughout the activity or intermittently. 3-Partial/Moderate Assistance-helper does LESS THAN HALF the effort. [place] lifts, holds or supports trunk or limbs, but provides less than half the effort. 2-Substantial/Maximal Assistance-helper does MORE THAN HALF the effort. [place] lifts or holds trunk or limbs and provides more than half the effort. 7-Yxqvrcqiw-mpgmsk does ALL the effort. Patient does none of the effort to complete the activity. Or, the assistance of 2 or more helpers is required for the patient to complete the activity. If activity was not attempted, code reason: 7-Patient Refused. 9-Not Applicable-not attempted and the patient did not perform the activity before the current illness, exacerbation or injury. 10-Not Attempted due to Environmental Limitations-(lack of equipment, weather restraints, etc.). 88-Not Attempted due to Medical Conditions or Safety Concerns. Lying to Sitting/Side of Bed(Q: 6 Sit to Stand (QC): 6 Toilet Transfer (QC): 6 Weight Bearing Full Weight Bearing Full Weight Bearing NWB RUE Gait Training Does the Patient Walk?: Yes Distance: 150' x2 Walk 10 feet (QC): 6 Walk 50 ft with 2 Turns(QC): 6 Walk 150 ft (QC): 6 Gait Persons Needed: 1 Gait Assistive Device: None Wheelchair Training Does the Pt Use a Wheelchair?: No Exercises Standing: Hip Abduction, Hamstring curls, Heel/toe raises, Marching, Mini squats, Weight shifts Standing Reps: 20 Treatments TF to standing and dons brace with assist from LEHR OPERATOR. Amb in hallway and completes Standing Ex at //bars. Pt amb in hallway and returns to room to rest. All needs met. Assessment Current Status: Good Progress Pt is gaining strength and independence with tasks w/o fatigue. PT Short Term Goals Short Term Goals Time Frame: Jun 30, 2020 Roll Left & Right: 6 Sit to lyin Lying to sitting on side of be: 6 Sit to stand: 6 Chair/nww-nz-jzsrt transfer: 6 Walk 10 feet: 6 Walk 50 feet with two turns: 6 Walk 150 feet: 6 1 step (curb): 6 4 steps: 6 12 steps: 6 PT Snf Goals Snf Goals PT Painting Manager Goals Time Frame: Jul 14, 2020 Roll Left & Right (QC): 6 Sit to Lying (QC): 6 Lying-Sitting on Side/Bed(QC): 6 Sit to Stand (QC): 6 Chair/Oiy-df-Xrxil Xfer(QC): 6 Toilet Transfer (QC): 6 Car Transfer (QC): 6 Does the Patient Walk: Yes Walk 10 feet (QC): 6 Walk 50ft with 2 Turns (QC): 6 Walk 150 ft (QC): 6 Walking 10ft on Uneven Surface: 6 1 Step (curb) (QC): 6 4 Steps (QC): 6 12 Steps (QC): 6 Picking up an Object (QC): 88 Wheel 50 feet with 2 turns (QC: 9 Wheel 150 feet: 9 PT Plan Treatment/Plan Treatment Plan: Continue Plan of Care Treatment Plan: Education, Functional Activity Raul, Functional Strength, Group Therapy, Gait, Safety, Therapeutic Exercise, Transfers Treatment Duration: Jul 14, 2020 Frequency: At least 5 of 7 days/Wk (IRF) Estimated Hrs Per Day: 1.5 hours per day Patient and/or Family Agrees t: Yes Time/GCodes Time In: 1345 Time Out: 1415 Total Billed Treatment Time: 30 Total Billed Treatment 1, GT (15m) & EX (15m) EDIS GONSALVES LEHR OPERATOR Jun 27, 2020 14:39
[2020-06-27 17:06] VITALS: BP 114/66
[2020-06-27] MEDS: traZODone 50 MG (DESYREL) TAB PO SCH (20:25)
[2020-06-28] MEDS: HYDROmorphone (DILAUDID) 2 MG TAB PO PRN ×6 (00:22→20:21)
[2020-06-28 05:30] VITALS: BP 113/58
[2020-06-28] MEDS: polyethylene glycoL POWDER 17 GM (MIRALAX) PACK PO SCH ×2 (08:15→20:20)
[2020-06-28] MEDS: ACETAMINOPHEN 325 MG TABLET PO PRN (08:15)
[2020-06-28] MEDS: GABAPENTIN 600 MG (NEURONTIN) TAB PO SCH ×3 (08:15→20:21)
[2020-06-28] MEDS: DOCUSATE SODIUM 100 MG (COLACE) CAP PO SCH ×2 (08:15→20:21)
[2020-06-28] MEDS: SENNA W/DOCUSATE (SENOKOT S) TABLET PO SCH ×2 (08:15→20:21)
[2020-06-28] MEDS: BISACODYL 10 MG SUPP (DULCOLAX) PR SCH (09:13)
--- NOTE | 2020-06-28 11:02 | Occupational Ther Daily Note ---
OT Current Status-Daily Note Subjective Pt reported no pain, but when asked, pt stated that the pain is manageable and did not give pain rating Mental Status/Objective Patient Orientation: Person, Place, Time, Situation ADL-Treatment Therapy Code Descriptions/Definitions Functional [place] Measure: 0=Not Assessed/NA 4=Minimal Assistance 1=Total Assistance 5=Supervision or Setup 2=Maximal Assistance 6=Modified [place] 3=Moderate Assistance 7=Complete IndependenceSCALE: Activities may be completed with or without assistive devices. 6-Xkiifzajxj-rckjeun completes the activity by him/herself with no assistance from a helper. 5-Set-up or Clean-up Assistance-helper sets up or cleans up; patient completes activity. [place] assists only prior to or following the activity. 4-Supervision or Touching Assistance-helper provides verbal cues and/or touching/steadying and/or contact guard assistance as patient completes activity. Assistance may be provided throughout the activity or intermittently. 3-Partial/Moderate Assistance-helper does LESS THAN HALF the effort. [place] lift s, holds or supports trunk or limbs, but provides less than half the effort. 2-Substantial/Maximal Assistance-helper does MORE THAN HALF the effort. [place] lifts or holds trunk or limbs and provides more than half the effort. 7-Hrgamesmn-yqduwc does ALL the effort. Patient does none of the effort to complete the activity. Or, the assistance of 2 or more helpers is required for the patient to complete the activity. If activity was not attempted, code reason: 7-Patient Refused. 9-Not Applicable-not attempted and the patient did not perform the activity before the current illness, exacerbation or injury. 10-Not Attempted due to Environmental Limitations-(lack of equipment, weather restraints, etc.). 88-Not Attempted due to Medical Conditions or Safety Concerns. Oral Hygiene (QC): 6 (Ind) Upper Body Dressing (QC): 3 (Genny, assistance to adjust shirt around L armpit and assistance to pull R arm through hole. SBA for back brace after modifications. IND sling.) Lower Body Dressing (QC): 4 (Supervision in order to make sure pt adhered to spinal precautions) On/Off Footwear: 5 (Set up) Other Treatment Pt began tx supine in bed. With pt's permission, OT modified pt's back brace. OT educated pt on ways to don back brace with modified strap and dysem. Pt attempted seated and donning, but can don back brace with SBA laying in bed. Pt doffed back brace and completed dressing tasks. Pt donned back brace and sling. Pt then ambulated to bathroom to complete oral hygiene and ambulated to laundry room and completed laundry task. Then ambulated to therapy gym with a rest break to drink water. In gym, pt transferred to EOB sitting on mat to supine. OT performed gentle PROM on RUE to decrease pain and stiffness as well as increase ROM. OT completed shoulder flexion, external rotation and abduction. Pt preformed AROM on elbow flexion and hand circles, x15 reps each. Pt then complete pendulum swings for about 2 minutes clockwise and counterclockwise. Pt completed arm bike exercise for 10min with no rest break required, to increase LUE strength and activity tolerance. Upon finishing, pt ambulated to room with no rest breaks and sat EOB in room. Post tx, pt EOB with call light in reach and all needs met. Education OT Patient Education: Correct positioning, Energy conservation, Modified ADL techniques, Progress toward Goal/Update tx plan, Purpose of tx/functional activities, Reviewed precautions, Rehab process, Safety issues, Use of adapted equipment Teaching Recipient: Patient Teaching Methods: Discussion Response to Teaching: Verbalize Understanding OT Short Term Goals Short Term Goals Time Frame: Jun 30, 2020 Shower/bathe self: 4 Upper body dressin Lower body dressin Putting on/taking off footwear: 4 OT Travel Registered Nurse Nicu Goals Fpc Goals Time Frame: Jul 07, 2020 Eating (QC): 6 Oral Hygiene (QC): 6 Toileting Hygiene (QC): 6 Shower/Bathe Self (QC): 6 Upper Body Dressing (QC): 6 Lower Body Dressing (QC): 6 On/Off Footwear (QC): 6 Additional Goals: 1-Demonstrate ADL Tasks, 2-Verbalize Understanding, 3- ImproveStrength/Raul 1=Demonstrate adherence to instructed precautions during ADL tasks. 2=Patient will verbalize/demonstrate understanding of assistive devices/modifications for ADL. 3=Patient will improve strength/tolerance for activity to enable patient to perform ADL's. OT Education/Plan Problem List/Assessment Assessment: Decreased Activ Tolerance, Decreased UE Strength, Impaired Coordination, Impaired I ADL's, Impaired Self-Care Skills Pt would benefit from skilled OT to increase his independence in basic self care to allow him to safely return home to live alone Discharge Recommendations Plan/Recommendations: Continue POC Treatment Plan/Plan of Care Patient would benefit from OT for education, treatment and training to promote independence in ADL's, mobility, safety and/or upper extremity function for ADL's. Plan of Care: ADL Retraining, Functional Mobility, Group Exercise/Act as Ind (activity tolerance, fuunct mobility, strengthening, socialization), UE Funct Exercise/Act, UE Neuromus Re-Ed/Coord Treatment Duration: Jul 07, 2020 Frequency: 5 times per week Estimated Hrs Per Day: 1.5 hours per day Rehab Potential: Good Time/GCodes Start Time: 09:15 Stop Time: 10:45 Total Time Billed (hr/min): 90 Billed Treatment Time 1, ADL 3 (40'), EX 3 (50') DENISE CARIAS OT Jun 28, 2020 11:02
[2020-06-28] MEDS ORDERED: GBPN600T PO ×2 (11:25)
[2020-06-28] MEDS ORDERED: TRAZ-227 PO (11:25)
[2020-06-28] MEDS ORDERED: PROP20TA5 PO ×2 (11:25)
[2020-06-28] MEDS ORDERED: MELA5TAB14 PO (11:25)
[2020-06-28] MEDS ORDERED: ESCI20TA39 PO (11:25)
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
--- NOTE | 2020-06-28 12:25 | Physical Therapy Daily Note ---
PT Daily Note-Current Subjective PT sitting up in bed upon arrival. Pt agrees to PT. Pain Numeric Pain Scale: 7 Location: Lower Location Body Site: Back Pain Description: Ache Mental Status Patient Orientation: Person, Place, Time, Situation Attachments: Other-See Comments (Lumbar Brace) Transfers SCALE: Activities may be completed with or without assistive devices. 9-Pqfpefcico-uyrycrd completes the activity by him/herself with no assistance from a helper. 5-Set-up or Clean-up Assistance-helper sets up or cleans up; patient completes activity. [place] assists only prior to or following the activity. 4-Supervision or Touching Assistance-helper provides verbal cues and/or touching/steadying and/or contact guard assistance as patient completes activity. Assistance may be provided throughout the activity or intermittently. 3-Partial/Moderate Assistance-helper does LESS THAN HALF the effort. [place] lifts, holds or supports trunk or limbs, but provides less than half the effort. 2-Substantial/Maximal Assistance-helper does MORE THAN HALF the effort. [place] lifts or holds trunk or limbs and provides more than half the effort. 3-Seuvcwnzr-pmanfh does ALL the effort. Patient does none of the effort to complete the activity. Or, the assistance of 2 or more helpers is required for the patient to complete the activity. If activity was not attempted, code reason: 7-Patient Refused. 9-Not Applicable-not attempted and the patient did not perform the activity before the current illness, exacerbation or injury. 10-Not Attempted due to Environmental Limitations-(lack of equipment, weather restraints, etc.). 88-Not Attempted due to Medical Conditions or Safety Concerns. Sit to Lying (QC): 6 Lying to Sitting/Side of Bed(Q: 6 Sit to Stand (QC): 6 Weight Bearing Full Weight Bearing Full Weight Bearing NWB RUE Gait Training Does the Patient Walk?: Yes Distance: 450', 150' Walk 10 feet (QC): 6 Walk 50 ft with 2 Turns(QC): 6 Walk 150 ft (QC): 5 Gait Persons Needed: 1 Gait Assistive Device: None Wheelchair Training Does the Pt Use a Wheelchair?: No Exercises Standing: Hip Abduction, Hamstring curls, Heel/toe raises, Marching Standing Reps: 15 NuStep Minutes: 15 NuStep Workload: 4 Treatments TF to standing then amb. in hallway. Pt uses Nustep w/o R UE. Pt then completes Standing EX at //bars and amb back to room. All needs met. Assessment Current Status: Good Progress Pt is gaining strength and activity tolerance. PT Short Term Goals Short Term Goals Time Frame: Jun 30, 2020 Roll Left & Right: 6 Sit to lyin Lying to sitting on side of be: 6 Sit to stand: 6 Chair/etp-sx-nsfnk transfer: 6 Walk 10 feet: 6 Walk 50 feet with two turns: 6 Walk 150 feet: 6 1 step (curb): 6 4 steps: 6 12 steps: 6 PT Finish Repairer Goals Custodial Goals PT Finish Repairer Goals Time Frame: Jul 14, 2020 Roll Left & Right (QC): 6 Sit to Lying (QC): 6 Lying-Sitting on Side/Bed(QC): 6 Sit to Stand (QC): 6 Chair/Nix-pq-Dwofo Xfer(QC): 6 Toilet Transfer (QC): 6 Car Transfer (QC): 6 Does the Patient Walk: Yes Walk 10 feet (QC): 6 Walk 50ft with 2 Turns (QC): 6 Walk 150 ft (QC): 6 Walking 10ft on Uneven Surface: 6 1 Step (curb) (QC): 6 4 Steps (QC): 6 12 Steps (QC): 6 Picking up an Object (QC): 88 Wheel 50 feet with 2 turns (QC: 9 Wheel 150 feet: 9 PT Plan Treatment/Plan Treatment Plan: Continue Plan of Care Treatment Plan: Education, Functional Activity Raul, Functional Strength, Group Therapy, Gait, Safety, Therapeutic Exercise, Transfers Treatment Duration: Jul 14, 2020 Frequency: At least 5 of 7 days/Wk (IRF) Estimated Hrs Per Day: 1.5 hours per day Patient and/or Family Agrees t: Yes Time/GCodes Time In: 1115 Time Out: 1215 Total Billed Treatment Time: 60 Total Billed Treatment 1, GT x2 (25m) & EX x2 (35m) EDIS GONSALVES PARTS RUNNER Jun 28, 2020 12:25
[2020-06-28] MEDS: PROPRANOLOL 20 MG (INDERAL) TABLET PO PRN ×2 (12:56→20:24)
[2020-06-28] MEDS: DOCUSATE SODIUM 100 MG (COLACE) CAP PO PRN (12:56)
--- NOTE | 2020-06-28 14:38 | Physical Therapy Daily Note ---
PT Daily Note-Current Subjective Pt laying Supine in bed upon arrival. Pt agrees to PT. Pain Numeric Pain Scale: 6 Location: Right, Lower Location Body Site: Back Pain Description: Ache Mental Status Patient Orientation: Person, Place, Time, Situation Attachments: Other-See Comments (Lumbar Brace) Transfers SCALE: Activities may be completed with or without assistive devices. 9-Oowaztdoio-zrbcmrj completes the activity by him/herself with no assistance from a helper. 5-Set-up or Clean-up Assistance-helper sets up or cleans up; patient completes activity. [place] assists only prior to or following the activity. 4-Supervision or Touching Assistance-helper provides verbal cues and/or touching/steadying and/or contact guard assistance as patient completes activity. Assistance may be provided throughout the activity or intermittently. 3-Partial/Moderate Assistance-helper does LESS THAN HALF the effort. [place] lifts, holds or supports trunk or limbs, but provides less than half the effort. 2-Substantial/Maximal Assistance-helper does MORE THAN HALF the effort. [place] lifts or holds trunk or limbs and provides more than half the effort. 4-Tbnstujdo-kelxpm does ALL the effort. Patient does none of the effort to complete the activity. Or, the assistance of 2 or more helpers is required for the patient to complete the activity. If activity was not attempted, code reason: 7-Patient Refused. 9-Not Applicable-not attempted and the patient did not perform the activity before the current illness, exacerbation or injury. 10-Not Attempted due to Environmental Limitations-(lack of equipment, weather restraints, etc.). 88-Not Attempted due to Medical Conditions or Safety Concerns. Lying to Sitting/Side of Bed(Q: 6 Sit to Stand (QC): 6 Toilet Transfer (QC): 6 Weight Bearing Full Weight Bearing Full Weight Bearing NWB RUE Gait Training Does the Patient Walk?: Yes Distance: 1000+' Walk 10 feet (QC): 6 Walk 50 ft with 2 Turns(QC): 6 Walk 150 ft (QC): 6 Gait Persons Needed: 1 Gait Assistive Device: None Wheelchair Training Does the Pt Use a Wheelchair?: No Treatments TF to standing then asks to use BR. Pt amb. in hallway and on main floor of hospital with RB as needed. Pt returns to room at end of walk to rest. All needs met. Assessment Current Status: Good Progress Pt is able to walk community distances with improved activity tolerance, still needing RB though. PT Short Term Goals Short Term Goals Time Frame: Jun 30, 2020 Roll Left & Right: 6 Sit to lyin Lying to sitting on side of be: 6 Sit to stand: 6 Chair/gyy-tr-rhimn transfer: 6 Walk 10 feet: 6 Walk 50 feet with two turns: 6 Walk 150 feet: 6 1 step (curb): 6 4 steps: 6 12 steps: 6 PT Quality Assurance Qa Lab Analyst Goals [place] Goals PT Quality Assurance Qa Lab Analyst Goals Time Frame: Jul 14, 2020 Roll Left & Right (QC): 6 Sit to Lying (QC): 6 Lying-Sitting on Side/Bed(QC): 6 Sit to Stand (QC): 6 Chair/Omt-eu-Wtoex Xfer(QC): 6 Toilet Transfer (QC): 6 Car Transfer (QC): 6 Does the Patient Walk: Yes Walk 10 feet (QC): 6 Walk 50ft with 2 Turns (QC): 6 Walk 150 ft (QC): 6 Walking 10ft on Uneven Surface: 6 1 Step (curb) (QC): 6 4 Steps (QC): 6 12 Steps (QC): 6 Picking up an Object (QC): 88 Wheel 50 feet with 2 turns (QC: 9 Wheel 150 feet: 9 PT Plan Problem List Problem List: Activity Tolerance Treatment/Plan Treatment Plan: Continue Plan of Care Treatment Plan: Education, Functional Activity Raul, Functional Strength, Group Therapy, Gait, Safety, Therapeutic Exercise, Transfers Treatment Duration: Jul 14, 2020 Frequency: At least 5 of 7 days/Wk (IRF) Estimated Hrs Per Day: 1.5 hours per day Patient and/or Family Agrees t: Yes Time/GCodes Time In: 1330 Time Out: 1420 Total Billed Treatment Time: 50 Total Billed Treatment 1, GT x3 (50m) EDIS GONSALVES HISTORICAL GUIDE Jun 28, 2020 14:38
[2020-06-28 16:25] VITALS: BP 103/54
[2020-06-28] MEDS: traZODone 50 MG (DESYREL) TAB PO SCH (20:21)
[2020-06-29] MEDS: HYDROmorphone (DILAUDID) 2 MG TAB PO PRN ×7 (00:13→21:20)
[2020-06-29 05:56] VITALS: BP 112/65
[2020-06-29] MEDS: polyethylene glycoL POWDER 17 GM (MIRALAX) PACK PO SCH ×2 (07:34→21:19)
[2020-06-29] MEDS: SENNA W/DOCUSATE (SENOKOT S) TABLET PO SCH ×2 (07:34→21:20)
[2020-06-29] MEDS: DOCUSATE SODIUM 100 MG (COLACE) CAP PO SCH ×2 (07:35→21:20)
[2020-06-29] MEDS: GABAPENTIN 600 MG (NEURONTIN) TAB PO SCH ×3 (07:35→21:20)
[2020-06-29] MEDS: BISACODYL 10 MG SUPP (DULCOLAX) PR SCH (08:48)
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
--- NOTE | 2020-06-29 10:52 | Occupational Ther Daily Note ---
OT Current Status-Daily Note Subjective Pt reported an 7-8/10 pain rating in shoulder after activity. Upon waking up, his pain rating is at a 5/10. Mental Status/Objective Patient Orientation: Person, Place, Time, Situation ADL-Treatment Therapy Code Descriptions/Definitions Functional [place] Measure: 0=Not Assessed/NA 4=Minimal Assistance 1=Total Assistance 5=Supervision or Setup 2=Maximal Assistance 6=Modified [place] 3=Moderate Assistance 7=Complete IndependenceSCALE: Activities may be completed with or without assistive devices. 4-Voungexlhi-xturboo completes the activity by him/herself with no assistance from a helper. 5-Set-up or Clean-up Assistance-helper sets up or cleans up; patient completes activity. [place] assists only prior to or following the activity. 4-Supervision or Touching Assistance-helper provides verbal cues and/or touching/steadying and/or contact guard assistance as patient completes activity. Assistance may be provided throughout the activity or intermittently. 3-Partial/Moderate Assistance-helper does LESS THAN HALF the effort. [place] lifts, holds or supports trunk or limbs, but provides less than half the effort. 2-Substantial/Maximal Assistance-helper does MORE THAN HALF the effort. [place] lifts or holds trunk or limbs and provides more than half the effort. 6-Hfirkmjdw-tyksfs does ALL the effort. Patient does none of the effort to complete the activity. Or, the assistance of 2 or more helpers is required for the patient to complete the activity. If activity was not attempted, code reason: 7-Patient Refused. 9-Not Applicable-not attempted and the patient did not perform the activity before the current illness, exacerbation or injury. 10-Not Attempted due to Environmental Limitations-(lack of equipment, weather restraints, etc.). 88-Not Attempted due to Medical Conditions or Safety Concerns. Shower/Bathe Self (QC): 3 (Genny, pt able to wash all body parts, but assistance to was LUE thoroughly) Upper Body Dressing (QC): 3 (Genny, assistance to pull LUE, pt able to adjust shirt around RUE. SBA for back brace and Ind for sling) Lower Body Dressing (QC): 4 (Supervision) On/Off Footwear: 4 (SBA, required cues on best method to don with one hand. Pt doffed socks Ind and donned footwear Ind with AD) Toileting Hygiene (QC): 6 (Ind for all components) Toilet Transfer (QC): 6 (Ind) Other Treatment Pt began tx ambulating in room and agreed to shower. Pt doffed clothing and completed shower. Pt donned clothing and and sat in chair to don back brace. Pt was unable to tighten back brace enough in chair, so pt ambulated to bed to don back brace while supine in bed. Pt ambulated to therapy gym with no rest breaks needed. In gym, OT performed gentle PROM on RUE completing shoulder flexion, external rotation, and abduction to decrease pain and stiffness and to increase ROM. Pt completed AROM for elbow flexion and completed hand circles on RUE to decrease pain and stiffness and increase ROM. Pt participated in arm bike exercise for 5min with LUE with minimal resistance to increase activity tolerance and LUE strength. Pt ambulated back to room and got water on the way. Pt changed his pants and put on short, supervision. Pt laying supine in bed with call light in reach and all needs met. Education OT Patient Education: Correct positioning, Energy conservation, Modified ADL techniques, Progress toward Goal/Update tx plan, Purpose of tx/functional activities, Reviewed precautions, Rehab process, Safety issues, Use of adapted equipment Teaching Recipient: Patient Teaching Methods: Discussion Response to Teaching: Verbalize Understanding OT Short Term Goals Short Term Goals Time Frame: Jun 30, 2020 Shower/bathe self: 4 Upper body dressin Lower body dressin Putting on/taking off footwear: 4 OT Metal Roaster Goals Fdc Goals Time Frame: Jul 07, 2020 Eating (QC): 6 Oral Hygiene (QC): 6 Toileting Hygiene (QC): 6 Shower/Bathe Self (QC): 6 Upper Body Dressing (QC): 6 Lower Body Dressing (QC): 6 On/Off Footwear (QC): 6 Additional Goals: 1-Demonstrate ADL Tasks, 2-Verbalize Understanding, 3- ImproveStrength/Raul 1=Demonstrate adherence to instructed precautions during ADL tasks. 2=Patient will verbalize/demonstrate understanding of assistive devices/modifications for ADL. 3=Patient will improve strength/tolerance for activity to enable patient to perform ADL's. OT Education/Plan Problem List/Assessment Assessment: Decreased Activ Tolerance, Decreased UE Strength, Impaired I ADL's, Impaired Self-Care Skills, Restricted Funct UE ROM Pt would benefit from skilled OT to increase his independence in basic self care to allow him to safely return home to live alone Discharge Recommendations Plan/Recommendations: Continue POC Treatment Plan/Plan of Care Patient would benefit from OT for education, treatment and training to promote independence in ADL's, mobility, safety and/or upper extremity function for ADL's. Plan of Care: ADL Retraining, Functional Mobility, Group Exercise/Act as Ind (activity tolerance, fuunct mobility, strengthening, socialization), UE Funct Exercise/Act, UE Neuromus Re-Ed/Coord Treatment Duration: Jul 07, 2020 Frequency: 5 times per week Estimated Hrs Per Day: 1.5 hours per day Rehab Potential: Good Time/GCodes Start Time: 09:15 Stop Time: 10:45 Total Time Billed (hr/min): 90 Billed Treatment Time 1, ADL 4 (60'), EX 2 (30') DENISE CARIAS OT Jun 29, 2020 10:52
--- NOTE | 2020-06-29 12:05 | Physical Therapy Daily Note ---
PT Daily Note-Current Subjective Pt. agrees to Rx, feels he has his DC and travel plans all made to his satisfaction Pain Location: No Pain Reported Mental Status Patient Orientation: Normal For Age Attachments: Other-See Comments (back brace) Transfers SCALE: Activities may be completed with or without assistive devices. 5-Rdgfyiqhnu-wypxdus completes the activity by him/herself with no assistance from a helper. 5-Set-up or Clean-up Assistance-helper sets up or cleans up; patient completes activity. [place] assists only prior to or following the activity. 4-Supervision or Touching Assistance-helper provides verbal cues and/or touching/steadying and/or contact guard assistance as patient completes activity. Assistance may be provided throughout the activity or intermittently. 3-Partial/Moderate Assistance-helper does LESS THAN HALF the effort. [place] lifts, holds or supports trunk or limbs, but provides less than half the effort. 2-Substantial/Maximal Assistance-helper does MORE THAN HALF the effort. [place] lifts or holds trunk or limbs and provides more than half the effort. 0-Rhhafitfm-ifvuoe does ALL the effort. Patient does none of the effort to complete the activity. Or, the assistance of 2 or more helpers is required for the patient to complete the activity. If activity was not attempted, code reason: 7-Patient Refused. 9-Not Applicable-not attempted and the patient did not perform the activity before the current illness, exacerbation or injury. 10-Not Attempted due to Environmental Limitations-(lack of equipment, weather restraints, etc.). 88-Not Attempted due to Medical Conditions or Safety Concerns. Roll Left & Right (QC): 6 Sit to Lying (QC): 6 Lying to Sitting/Side of Bed(Q: 6 Sit to Stand (QC): 6 Chair/Osr-fk-Arznr Xfer(QC): 6 Toilet Transfer (QC): 6 Weight Bearing Full Weight Bearing Full Weight Bearing NWB RUE Gait Training Does the Patient Walk?: Yes Walk 10 feet (QC): 6 Walk 50 ft with 2 Turns(QC): 6 Walk 150 ft (QC): 6 Gait Persons Needed: 0 ambulated 700 ft with no LOB, good stride, equal step length, better endurance, up ad doreen Stair Training Stair Training: Handrails/: 1 handrail #of Steps: 16 1 Step (curb) (QC): 6 4 Steps (QC): 6 12 Steps (QC): 6 Stairs: Pattern: Reciprocal Exercises NuStep Minutes: 15 NuStep Workload: 5 Treatments donns brace indep Assessment Current Status: Good Progress PT Short Term Goals Short Term Goals Time Frame: Jun 30, 2020 Roll Left & Right: 6 Sit to lyin Lying to sitting on side of be: 6 Sit to stand: 6 Chair/vuz-mz-ifgtd transfer: 6 Walk 10 feet: 6 Walk 50 feet with two turns: 6 Walk 150 feet: 6 1 step (curb): 6 4 steps: 6 12 steps: 6 PT Radiology Special Procedure Tech Goals Radiology Special Procedure Tech Goals PT Prison Goals Time Frame: Jul 14, 2020 Roll Left & Right (QC): 6 Sit to Lying (QC): 6 Lying-Sitting on Side/Bed(QC): 6 Sit to Stand (QC): 6 Chair/Xmg-uh-Hkbix Xfer(QC): 6 Toilet Transfer (QC): 6 Car Transfer (QC): 6 Does the Patient Walk: Yes Walk 10 feet (QC): 6 Walk 50ft with 2 Turns (QC): 6 Walk 150 ft (QC): 6 Walking 10ft on Uneven Surface: 6 1 Step (curb) (QC): 6 4 Steps (QC): 6 12 Steps (QC): 6 Picking up an Object (QC): 88 Wheel 50 feet with 2 turns (QC: 9 Wheel 150 feet: 9 PT Plan Treatment/Plan Treatment Plan: Continue Plan of Care Treatment Plan: Education, Functional Activity Raul, Functional Strength, Group Therapy, Gait, Safety, Therapeutic Exercise, Transfers Treatment Duration: Jul 14, 2020 Frequency: At least 5 of 7 days/Wk (IRF) Estimated Hrs Per Day: 1.5 hours per day Patient and/or Family Agrees t: Yes Safety Risks/Education Patient Education: Gait Training, Transfer Techniques, Steps Time/GCodes Time In: 1100 Time Out: 1200 Total Billed Treatment Time: 60 Total Billed Treatment 1,GT25m,EX20m,FA15m DOMONIQUE CORRAL DELINQUENCY PREVENTION SOCIAL WORKER Jun 29, 2020 12:05
[2020-06-29] MEDS: fentaNYL PATCH 25 MCG (DURAGESIC) TD SCH (12:48)
[2020-06-29] MEDS: PATCH REMOVAL TP SCH (12:48)
[2020-06-29] MEDS: DOCUSATE SODIUM 100 MG (COLACE) CAP PO PRN (12:54)
--- NOTE | 2020-06-29 15:15 | Physical Therapy Daily Note ---
PT Daily Note-Current Subjective Pt. agrees to Rx, agrees to apply mask and back brace indep and meet therapist in gym Pain Location: No Pain Reported Mental Status Patient Orientation: Normal For Age Transfers SCALE: Activities may be completed with or without assistive devices. 7-Udkkxylnyj-iwqxzqu completes the activity by him/herself with no assistance from a helper. 5-Set-up or Clean-up Assistance-helper sets up or cleans up; patient completes activity. [place] assists only prior to or following the activity. 4-Supervision or Touching Assistance-helper provides verbal cues and/or touching/steadying and/or contact guard assistance as patient completes activity. Assistance may be provided throughout the activity or intermittently. 3-Partial/Moderate Assistance-helper does LESS THAN HALF the effort. [place] lifts, holds or supports trunk or limbs, but provides less than half the effort. 2-Substantial/Maximal Assistance-helper does MORE THAN HALF the effort. [place] lifts or holds trunk or limbs and provides more than half the effort. 0-Olqmxcqcv-nkqtzn does ALL the effort. Patient does none of the effort to complete the activity. Or, the assistance of 2 or more helpers is required for the patient to complete the activity. If activity was not attempted, code reason: 7-Patient Refused. 9-Not Applicable-not attempted and the patient did not perform the activity before the current illness, exacerbation or injury. 10-Not Attempted due to Environmental Limitations-(lack of equipment, weather restraints, etc.). 88-Not Attempted due to Medical Conditions or Safety Concerns. Weight Bearing Full Weight Bearing Full Weight Bearing NWB RUE Gait Training no AD observed up and about in unit ambulation mod I Exercises Standing: Hip Abduction, Hamstring curls, Heel/toe raises, Marching, Mini squats, Sit to Stand, Side steps Standing Reps: 20 Treatments pt. instructed to TRF indep , kayla brace indep and come to gym indep. all done as well as back to room indep. Pt. requests permission to be up ad doreen in unit for walking later, granted per nursing and this PATTERNMAKER WOOD Assessment Current Status: Good Progress PT Short Term Goals Short Term Goals Time Frame: Jun 30, 2020 Roll Left & Right: 6 Sit to lyin Lying to sitting on side of be: 6 Sit to stand: 6 Chair/uxp-gi-ardrz transfer: 6 Walk 10 feet: 6 Walk 50 feet with two turns: 6 Walk 150 feet: 6 1 step (curb): 6 4 steps: 6 12 steps: 6 PT Machine Set Up Operator Goals Machine Set Up Operator Goals PT Correction Goals Time Frame: Jul 14, 2020 Roll Left & Right (QC): 6 Sit to Lying (QC): 6 Lying-Sitting on Side/Bed(QC): 6 Sit to Stand (QC): 6 Chair/Pwl-co-Qpgcu Xfer(QC): 6 Toilet Transfer (QC): 6 Car Transfer (QC): 6 Does the Patient Walk: Yes Walk 10 feet (QC): 6 Walk 50ft with 2 Turns (QC): 6 Walk 150 ft (QC): 6 Walking 10ft on Uneven Surface: 6 1 Step (curb) (QC): 6 4 Steps (QC): 6 12 Steps (QC): 6 Picking up an Object (QC): 88 Wheel 50 feet with 2 turns (QC: 9 Wheel 150 feet: 9 PT Plan Treatment/Plan Treatment Plan: Continue Plan of Care Treatment Plan: Education, Functional Activity Raul, Functional Strength, Group Therapy, Gait, Safety, Therapeutic Exercise, Transfers Treatment Duration: Jul 14, 2020 Frequency: At least 5 of 7 days/Wk (IRF) Estimated Hrs Per Day: 1.5 hours per day Patient and/or Family Agrees t: Yes Time/GCodes Time In: 1430 Time Out: 1500 Total Billed Treatment Time: 30 Total Billed Treatment 1,EX30m DOMONIQUE CORRAL PATTERNMAKER WOOD Jun 29, 2020 15:15
[2020-06-29 17:05] VITALS: BP 120/67
[2020-06-29] MEDS: PROPRANOLOL 20 MG (INDERAL) TABLET PO PRN (21:20)
[2020-06-29] MEDS: traZODone 50 MG (DESYREL) TAB PO SCH (21:20)
[2020-06-30] MEDS: HYDROmorphone (DILAUDID) 2 MG TAB PO PRN ×7 (01:11→22:14)
[2020-06-30 05:27] VITALS: BP 101/55
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
[2020-06-30] MEDS: SENNA W/DOCUSATE (SENOKOT S) TABLET PO SCH ×2 (07:54→21:18)
[2020-06-30] MEDS: DOCUSATE SODIUM 100 MG (COLACE) CAP PO SCH ×2 (07:54→21:19)
[2020-06-30] MEDS: GABAPENTIN 600 MG (NEURONTIN) TAB PO SCH ×3 (07:54→21:19)
[2020-06-30] MEDS: BISACODYL 10 MG SUPP (DULCOLAX) PR SCH (07:55)
[2020-06-30] MEDS: polyethylene glycoL POWDER 17 GM (MIRALAX) PACK PO SCH ×2 (08:00→21:19)
--- NOTE | 2020-06-30 09:59 | Physical Therapy Daily Note ---
PT Daily Note-Current Subjective Patient agrees to PT. Donns back brace, shoes, sling all independently. Mental Status Patient Orientation: Normal For Age Transfers SCALE: Activities may be completed with or without assistive devices. 3-Daipycejzo-pbtjlzo completes the activity by him/herself with no assistance from a helper. 5-Set-up or Clean-up Assistance-helper sets up or cleans up; patient completes activity. [place] assists only prior to or following the activity. 4-Supervision or Touching Assistance-helper provides verbal cues and/or touching/steadying and/or contact guard assistance as patient completes activity. Assistance may be provided throughout the activity or intermittently. 3-Partial/Moderate Assistance-helper does LESS THAN HALF the effort. [place] lifts, holds or supports trunk or limbs, but provides less than half the effort. 2-Substantial/Maximal Assistance-helper does MORE THAN HALF the effort. [place] lifts or holds trunk or limbs and provides more than half the effort. 9-Gsszxjhfy-pxkhuj does ALL the effort. Patient does none of the effort to complete the activity. Or, the assistance of 2 or more helpers is required for the patient to complete the activity. If activity was not attempted, code reason: 7-Patient Refused. 9-Not Applicable-not attempted and the patient did not perform the activity before the current illness, exacerbation or injury. 10-Not Attempted due to Environmental Limitations-(lack of equipment, weather restraints, etc.). 88-Not Attempted due to Medical Conditions or Safety Concerns. Roll Left & Right (QC): 6 Sit to Lying (QC): 6 Lying to Sitting/Side of Bed(Q: 6 Sit to Stand (QC): 6 Chair/Tji-hh-Psdmk Xfer(QC): 6 Car Transfer (QC): 6 Weight Bearing Full Weight Bearing Full Weight Bearing NWB RUE Gait Training Does the Patient Walk?: Yes Distance: 800' Walk 10 feet (QC): 6 Walk 50 ft with 2 Turns(QC): 6 Walk 150 ft (QC): 6 Walking 10ft/uneven surface-QC: 6 Gait Assistive Device: None safe and functional with no deviation Exercises NuStep Minutes: 10 NuStep Workload: 4 Assessment Patient tolerated treatment well and has been instructed to be up independently PRN. PT Short Term Goals Short Term Goals Time Frame: Jun 30, 2020 Roll Left & Right: 6 Sit to lyin Lying to sitting on side of be: 6 Sit to stand: 6 Chair/qsj-rf-dlpff transfer: 6 Walk 10 feet: 6 Walk 50 feet with two turns: 6 Walk 150 feet: 6 1 step (curb): 6 4 steps: 6 12 steps: 6 PT Penitentiary Goals Penitentiary Goals PT Penitentiary Goals Time Frame: Jul 14, 2020 Roll Left & Right (QC): 6 Sit to Lying (QC): 6 Lying-Sitting on Side/Bed(QC): 6 Sit to Stand (QC): 6 Chair/Dfj-cw-Wvarx Xfer(QC): 6 Toilet Transfer (QC): 6 Car Transfer (QC): 6 Does the Patient Walk: Yes Walk 10 feet (QC): 6 Walk 50ft with 2 Turns (QC): 6 Walk 150 ft (QC): 6 Walking 10ft on Uneven Surface: 6 1 Step (curb) (QC): 6 4 Steps (QC): 6 12 Steps (QC): 6 Picking up an Object (QC): 88 Wheel 50 feet with 2 turns (QC: 9 Wheel 150 feet: 9 PT Plan Treatment/Plan Treatment Plan: Continue Plan of Care Treatment Plan: Education, Functional Activity Raul, Functional Strength, Group Therapy, Gait, Safety, Therapeutic Exercise, Transfers Treatment Duration: Jul 14, 2020 Frequency: At least 5 of 7 days/Wk (IRF) Estimated Hrs Per Day: 1.5 hours per day Patient and/or Family Agrees t: Yes Time/GCodes Time In: 925 Time Out: 949 Total Billed Treatment Time: 24 Total Billed Treatment 1 visit EX 10 min FA 14 min LETI GAY PT Jun 30, 2020 09:59
[2020-06-30] MEDS: DOCUSATE SODIUM 100 MG (COLACE) CAP PO PRN (12:54)
[2020-06-30 16:00] VITALS: BP 135/73
[2020-06-30] MEDS: PROPRANOLOL 20 MG (INDERAL) TABLET PO PRN (21:18)
[2020-06-30] MEDS: traZODone 50 MG (DESYREL) TAB PO SCH (21:19)
[2020-07-01] MEDS: HYDROmorphone (DILAUDID) 2 MG TAB PO PRN ×5 (01:27→20:59)
[2020-07-01 05:06] VITALS: BP 105/78
[2020-07-01] MEDS: BISACODYL 10 MG SUPP (DULCOLAX) PR SCH (07:23)
[2020-07-01] MEDS: polyethylene glycoL POWDER 17 GM (MIRALAX) PACK PO SCH ×2 (07:30→20:58)
[2020-07-01] MEDS: SENNA W/DOCUSATE (SENOKOT S) TABLET PO SCH ×2 (07:30→20:59)
[2020-07-01] MEDS: DOCUSATE SODIUM 100 MG (COLACE) CAP PO SCH ×2 (07:31→20:58)
[2020-07-01] MEDS: GABAPENTIN 600 MG (NEURONTIN) TAB PO SCH ×3 (07:31→20:59)
[2020-07-01] MEDS: DOCUSATE SODIUM 100 MG (COLACE) CAP PO PRN (12:34)
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
[2020-07-01 15:01] LABS: BILIRUBIN,URINE NEGATIVE (NEGATIVE); CLARITY,URINE SL CLOUDY; COLOR,URINE YELLOW; GLUCOSE, URINE (UA) NEGATIVE (NEGATIVE); KETONES,URINE NEGATIVE (NEGATIVE); LEUKOCYTE ESTERASE ,URINE TRACE (NEGATIVE); NITRITE,URINE NEGATIVE (NEGATIVE); PROTEIN,URINE 1+ (NEGATIVE)
[2020-07-01 15:13] LABS: BACTERIA,URINE MODERATE /HPF; WBC,URINE 0-2 /HPF
[2020-07-01 17:05] VITALS: BP 112/71
[2020-07-01] MEDS: PROPRANOLOL 20 MG (INDERAL) TABLET PO PRN (20:58)
[2020-07-01] MEDS: traZODone 50 MG (DESYREL) TAB PO SCH (20:59)
[2020-07-02] MEDS: HYDROmorphone (DILAUDID) 2 MG TAB PO PRN ×7 (00:32→23:22)
[2020-07-02 05:35] LABS: BASOPHILS % (AUTO) 1 % (0-10); EOSINOPHILS # (AUTO) 0.2 10^3/uL (0.0-0.3); EOSINOPHILS % (AUTO) 4 % (0-10); HEMATOCRIT 30 % (40-54); HEMOGLOBIN 9.6 g/dL (13.3-17.7); LYMPHOCYTES # (AUTO) 1.9 10^3/uL (1.0-4.0); LYMPHOCYTES % (AUTO) 32 % (12-44); MEAN CORPUSCULAR HEMOGLOBIN 31 pg (25-34); MEAN CORPUSCULAR HGB CONC 32 g/dL (32-36); MEAN CORPUSCULAR VOLUME 95 fL (80-99); MEAN PLATELET VOLUME 9.2 fL (9.0-12.2); MONOCYTES # (AUTO) 0.6 10^3/uL (0.0-1.0); MONOCYTES % (AUTO) 9 % (0-12); NEUTROPHILS # (AUTO) 3.2 10^3/uL (1.8-7.8); NEUTROPHILS % (AUTO) 53 % (42-75); PLATELET COUNT 351 10^3/uL (130-400)
[2020-07-02 05:47] VITALS: BP 101/57
[2020-07-02 06:07] LABS: ALANINE AMINOTRANSFERASE 27 U/L (0-55); ALKALINE PHOSPHATASE 152 U/L (40-136); BILIRUBIN,TOTAL 0.3 MG/DL (0.1-1.0); BUN/CREATININE RATIO 23; CALCIUM 8.5 MG/DL (8.5-10.1); CARBON DIOXIDE 24 MMOL/L (21-32); CHLORIDE 106 MMOL/L (98-107); CREATININE SERUM 0.87 MG/DL (0.60-1.30); GFR ESTIMATED > 60; GLUCOSE 95 MG/DL (70-105); POTASSIUM 4.4 MMOL/L (3.6-5.0); SODIUM 140 MMOL/L (135-145); TOTAL PROTEIN 5.8 GM/DL (6.4-8.2)
[2020-07-02] MEDS: DOCUSATE SODIUM 100 MG (COLACE) CAP PO SCH ×2 (08:29→20:17)
[2020-07-02] MEDS: GABAPENTIN 600 MG (NEURONTIN) TAB PO SCH ×3 (08:29→20:18)
[2020-07-02] MEDS: polyethylene glycoL POWDER 17 GM (MIRALAX) PACK PO SCH ×2 (08:29→20:17)
[2020-07-02] MEDS: SENNA W/DOCUSATE (SENOKOT S) TABLET PO SCH ×2 (08:29→20:17)
[2020-07-02] MEDS: BISACODYL 10 MG SUPP (DULCOLAX) PR SCH (08:32)
--- NOTE | 2020-07-02 10:24 | Occupational Ther Daily Note ---
OT Current Status-Daily Note Subjective Pt laying in bed sleeping, easily awoken and agreeable to therapy. Pt reports 7/10 pain in R shoulder. Pain Numeric Pain Scale: 7 Location: Right Location Body Site: Shoulder Mental Status/Objective Patient Orientation: Person, Place, Time, Situation ADL-Treatment Therapy Code Descriptions/Definitions Functional [place] Measure: 0=Not Assessed/NA 4=Minimal Assistance 1=Total Assistance 5=Supervision or Setup 2=Maximal Assistance 6=Modified [place] 3=Moderate Assistance 7=Complete IndependenceSCALE: Activities may be completed with or without assistive devices. 8-Ymcrtudmlc-ouotzua completes the activity by him/herself with no assistance from a helper. 5-Set-up or Clean-up Assistance-helper sets up or cleans up; patient completes activity. [place] assists only prior to or following the activity. 4-Supervision or Touching Assistance-helper provides verbal cues and/or touching/steadying and/or contact guard assistance as patient completes activity. Assistance may be provided throughout the activity or intermittently. 3-Partial/Moderate Assistance-helper does LESS THAN HALF the effort. [place] lifts, holds or supports trunk or limbs, but provides less than half the effort. 2-Substantial/Maximal Assistance-helper does MORE THAN HALF the effort. [place] lifts or holds trunk or limbs and provides more than half the effort. 6-Ghmlztpxc-yczpej does ALL the effort. Patient does none of the effort to complete the activity. Or, the assistance of 2 or more helpers is required for the patient to complete the activity. If activity was not attempted, code reason: 7-Patient Refused. 9-Not Applicable-not attempted and the patient did not perform the activity before the current illness, exacerbation or injury. 10-Not Attempted due to Environmental Limitations-(lack of equipment, weather restraints, etc.). 88-Not Attempted due to Medical Conditions or Safety Concerns. Eating (QC): 6 (Per pt report, pt independent with all meals.) Oral Hygiene (QC): 6 (IND standing at sink.) Bathing Location: L Arm, R Arm, R Upper Leg, L Lower Leg (including foot), R Lower Leg (including foot), Chest, Abdomen, Buttocks, Perineal Area Shower/Bathe Self (QC): 3 (Pt able to wash/dry all parts using LH sponge as needed. Pt felt as though he was unable to thoroughly wash L arm pit, requesting assistance from OT.) Upper Body Dressing (QC): 6 (Pt able to doff/don shirt and back brace independently.) Lower Body Dressing (QC): 6 (Pt able to doff/don pants/underwear indepe ndently.) On/Off Footwear: 6 (IND donning/doffing footwear) Toileting Hygiene (QC): 6 (IND, pt able to manage clothing and perform hygiene.) Toilet Transfer (QC): 6 Other Treatment Pt laying in bed, transferred to EOB to obtain back brace. Pt then returned supine to don back brace independently. Pt performed functional mobility around his room, no AD, gathering clothes and supplies for shower. Pt then transferred onto LA, doffing clothes, and then completed shower. Pt states difficulty using LH sponge to wash L arm pit thoroughly, requesting assistance. Pt demo'd using long handled sponge to reach areas, but he didn't feel like he was able to adequately wash his arm pit and L upper arm.Pt dried off, donned clothes and back brace. Post tx, pt up in room (pt is up ad doreen), all needs met. Education OT Patient Education: Correct positioning, Modified ADL techniques, Progress toward Goal/Update tx plan, Purpose of tx/functional activities Teaching Recipient: Patient Teaching Methods: Discussion Response to Teaching: Verbalize Understanding OT Short Term Goals Short Term Goals Time Frame: Jun 30, 2020 Shower/bathe self: 4 Upper body dressin Lower body dressin Putting on/taking off footwear: 4 OT Mcc Goals Mcc Goals Time Frame: Jul 07, 2020 Eating (QC): 6 Oral Hygiene (QC): 6 Toileting Hygiene (QC): 6 Shower/Bathe Self (QC): 6 Upper Body Dressing (QC): 6 Lower Body Dressing (QC): 6 On/Off Footwear (QC): 6 Additional Goals: 1-Demonstrate ADL Tasks, 2-Verbalize Understanding, 3- ImproveStrength/Raul 1=Demonstrate adherence to instructed precautions during ADL tasks. 2=Patient will verbalize/demonstrate understanding of assistive devices/modifications for ADL. 3=Patient will improve strength/tolerance for activity to enable patient to perform ADL's. OT Education/Plan Problem List/Assessment Assessment: Decreased Activ Tolerance, Decreased UE Strength, Impaired I ADL's Pt would benefit from skilled OT to increase his independence in basic self care to allow him to safely return home to live alone Discharge Recommendations Plan/Recommendations: Continue POC Treatment Plan/Plan of Care Patient would benefit from OT for education, treatment and training to promote independence in ADL's, mobility, safety and/or upper extremity function for ADL's. Plan of Care: ADL Retraining, Functional Mobility, Group Exercise/Act as Ind (activity tolerance, fuunct mobility, strengthening, socialization), UE Funct Exercise/Act, UE Neuromus Re-Ed/Coord Treatment Duration: Jul 07, 2020 Frequency: 5 times per week Estimated Hrs Per Day: 1.5 hours per day Rehab Potential: Good Time/GCodes Start Time: 10:00 Stop Time: 11:00 Total Time Billed (hr/min): 60 Billed Treatment Time 1, ADL 4 DENISE CARIAS OT Jul 02, 2020 10:24
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
--- NOTE | 2020-07-02 12:04 | Physical Therapy Daily Note ---
PT Daily Note-Current Subjective Pt. feels he is ready to DC, Pain Location: No Pain Reported Mental Status Patient Orientation: Normal For Age Attachments: Other-See Comments (back brace) Transfers SCALE: Activities may be completed with or without assistive devices. 0-Guyqzvjduw-xkqytpt completes the activity by him/herself with no assistance from a helper. 5-Set-up or Clean-up Assistance-helper sets up or cleans up; patient completes activity. [place] assists only prior to or following the activity. 4-Supervision or Touching Assistance-helper provides verbal cues and/or touching/steadying and/or contact guard assistance as patient completes activity. Assistance may be provided throughout the activity or intermittently. 3-Partial/Moderate Assistance-helper does LESS THAN HALF the effort. [place] lifts, holds or supports trunk or limbs, but provides less than half the effort. 2-Substantial/Maximal Assistance-helper does MORE THAN HALF the effort. [place] l ifts or holds trunk or limbs and provides more than half the effort. 5-Rqycjuhsy-rgupzn does ALL the effort. Patient does none of the effort to complete the activity. Or, the assistance of 2 or more helpers is required for the patient to complete the activity. If activity was not attempted, code reason: 7-Patient Refused. 9-Not Applicable-not attempted and the patient did not perform the activity before the current illness, exacerbation or injury. 10-Not Attempted due to Environmental Limitations-(lack of equipment, weather restraints, etc.). 88-Not Attempted due to Medical Conditions or Safety Concerns. Roll Left & Right (QC): 6 Sit to Lying (QC): 6 Lying to Sitting/Side of Bed(Q: 6 Sit to Stand (QC): 6 Chair/Lnh-qb-Xedsu Xfer(QC): 6 Toilet Transfer (QC): 6 Car Transfer (QC): 6 Weight Bearing Full Weight Bearing Full Weight Bearing NWB RUE Gait Training Does the Patient Walk?: Yes Walk 10 feet (QC): 6 Walk 50 ft with 2 Turns(QC): 6 Walk 150 ft (QC): 6 Walking 10ft/uneven surface-QC: 6 Gait Persons Needed: 0 Gait Assistive Device: None no LOB Stair Training Stair Training: Handrails/: 1 handrail #of Steps: 16 1 Step (curb) (QC): 6 4 Steps (QC): 6 12 Steps (QC): 6 Stairs: Pattern: Reciprocal Exercises Supine Ex: Ankle pumps, Rolling, Glut sets, Heel Slides, Hip abd/add Supine Reps: 20 Assessment Current Status: Good Progress PT Short Term Goals Short Term Goals Time Frame: Jun 30, 2020 Roll Left & Right: 6 Sit to lyin Lying to sitting on side of be: 6 Sit to stand: 6 Chair/vyx-io-rtsbs transfer: 6 Walk 10 feet: 6 Walk 50 feet with two turns: 6 Walk 150 feet: 6 1 step (curb): 6 4 steps: 6 12 steps: 6 PT Fpc Goals Manager Sap Goals PT Fpc Goals Time Frame: Jul 14, 2020 Roll Left & Right (QC): 6 Sit to Lying (QC): 6 Lying-Sitting on Side/Bed(QC): 6 Sit to Stand (QC): 6 Chair/Nwt-we-Vqtyr Xfer(QC): 6 Toilet Transfer (QC): 6 Car Transfer (QC): 6 Does the Patient Walk: Yes Walk 10 feet (QC): 6 Walk 50ft with 2 Turns (QC): 6 Walk 150 ft (QC): 6 Walking 10ft on Uneven Surface: 6 1 Step (curb) (QC): 6 4 Steps (QC): 6 12 Steps (QC): 6 Picking up an Object (QC): 88 Wheel 50 feet with 2 turns (QC: 9 Wheel 150 feet: 9 PT Plan Treatment/Plan Treatment Plan: Continue Plan of Care Treatment Plan: Education, Functional Activity Raul, Functional Strength, Group Therapy, Gait, Safety, Therapeutic Exercise, Transfers Treatment Duration: Jul 14, 2020 Frequency: At least 5 of 7 days/Wk (IRF) Estimated Hrs Per Day: 1.5 hours per day Patient and/or Family Agrees t: Yes Safety Risks/Education Patient Education: Transfer Techniques, Correct Positioning, Safety Issues Teaching Recipient: Patient Time/GCodes Time In: 1100 Time Out: 1200 Total Billed Treatment Time: 60 Total Billed Treatment 1,FA40m,EX20m DOMONIQUE CORRAL PTA Jul 02, 2020 12:04
[2020-07-02] MEDS: fentaNYL PATCH 25 MCG (DURAGESIC) TD SCH (12:46)
[2020-07-02] MEDS: PATCH REMOVAL TP SCH (12:47)
--- NOTE | 2020-07-02 14:02 | Occupational Ther Daily Note ---
OT Current Status-Daily Note Subjective Pt laying in bed, agreeable to OT Tx. ADL-Treatment Therapy Code Descriptions/Definitions Functional [place] Measure: 0=Not Assessed/NA 4=Minimal Assistance 1=Total Assistance 5=Supervision or Setup 2=Maximal Assistance 6=Modified [place] 3=Moderate Assistance 7=Complete IndependenceSCALE: Activities may be completed with or without assistive devices. 8-Zxbaahfppt-bicisxg completes the activity by him/herself with no assistance from a helper. 5-Set-up or Clean-up Assistance-helper sets up or cleans up; patient completes activity. [place] assists only prior to or following the activity. 4-Supervision or Touching Assistance-helper provides verbal cues and/or touching/steadying and/or contact guard assistance as patient completes activity. Assistance may be provided throughout the activity or intermittently. 3-Partial/Moderate Assistance-helper does LESS THAN HALF the effort. [place] lifts, holds or supports trunk or limbs, but provides less than half the effort. 2-Substantial/Maximal Assistance-helper does MORE THAN HALF the effort. [place] lifts or holds trunk or limbs and provides more than half the effort. 7-Tqhnhewik-kdwjpb does ALL the effort. Patient does none of the effort to com plete the activity. Or, the assistance of 2 or more helpers is required for the patient to complete the activity. If activity was not attempted, code reason: 7-Patient Refused. 9-Not Applicable-not attempted and the patient did not perform the activity before the current illness, exacerbation or injury. 10-Not Attempted due to Environmental Limitations-(lack of equipment, weather restraints, etc.). 88-Not Attempted due to Medical Conditions or Safety Concerns. Eating (QC): 6 (IND with lunch) Other Treatment Pt laying in bed, donned back brace independently, then went to therapy gym. OT performed gentle PROM of R shoulder for flexion, external rotation and abduction. Pt reports his pain is less with PROM on this date. Pt then completed x15 reps RUE AROM elbow flexion/extension. Pt returned to his room, post tx, laying in bed, call light in reach and all needs met. Education OT Patient Education: Correct positioning, Modified ADL techniques, Progress toward Goal/Update tx plan, Purpose of tx/functional activities Teaching Recipient: Patient Teaching Methods: Discussion Response to Teaching: Verbalize Understanding OT Short Term Goals Short Term Goals Time Frame: Jun 30, 2020 Shower/bathe self: 4 Upper body dressin Lower body dressin Putting on/taking off footwear: 4 OT Detention Goals Detention Goals Time Frame: Jul 07, 2020 Eating (QC): 6 Oral Hygiene (QC): 6 Toileting Hygiene (QC): 6 Shower/Bathe Self (QC): 6 Upper Body Dressing (QC): 6 Lower Body Dressing (QC): 6 On/Off Footwear (QC): 6 Additional Goals: 1-Demonstrate ADL Tasks, 2-Verbalize Understanding, 3- ImproveStrength/Raul 1=Demonstrate adherence to instructed precautions during ADL tasks. 2=Patient will verbalize/demonstrate understanding of assistive devices/modifications for ADL. 3=Patient will improve strength/tolerance for activity to enable patient to perform ADL's. OT Education/Plan Problem List/Assessment Assessment: Decreased Activ Tolerance, Decreased UE Strength, Impaired I ADL's, Impaired Self-Care Skills, Restricted Funct UE ROM Pt would benefit from skilled OT to increase his independence in basic self care to allow him to safely return home to live alone Discharge Recommendations Plan/Recommendations: Continue POC Treatment Plan/Plan of Care Patient would benefit from OT for education, treatment and training to promote independence in ADL's, mobility, safety and/or upper extremity function for ADL's. Plan of Care: ADL Retraining, Functional Mobility, Group Exercise/Act as Ind (activity tolerance, fuunct mobility, strengthening, socialization), UE Funct Exercise/Act, UE Neuromus Re-Ed/Coord Treatment Duration: Jul 07, 2020 Frequency: 5 times per week Estimated Hrs Per Day: 1.5 hours per day Rehab Potential: Good Time/GCodes Start Time: 13:00 Stop Time: 13:30 Total Time Billed (hr/min): 30 Billed Treatment Time 1, EX 2 DENISE CARIAS OT Jul 02, 2020 14:02
--- NOTE | 2020-07-02 15:01 | Physical Therapy Daily Note ---
PT Daily Note-Current Subjective Pt. agrees to Rx. States he is looking forward to going to the Dr tomorrow. Rates pain at 7/10 in right shoulder Pain Numeric Pain Scale: 7 Location: Right Location Body Site: Shoulder Pain Description: Ache Mental Status Patient Orientation: Normal For Age Attachments: Other-See Comments (sling and mask) Transfers SCALE: Activities may be completed with or without assistive devices. 0-Lpbfybffss-yxtizcw completes the activity by him/herself with no assistance from a helper. 5-Set-up or Clean-up Assistance-helper sets up or cleans up; patient completes activity. [place] assists only prior to or following the activity. 4-Supervision or Touching Assistance-helper provides verbal cues and/or touching/steadying and/or contact guard assistance as patient completes activity. Assistance may be provided throughout the activity or intermittently. 3-Partial/Moderate Assistance-helper does LESS THAN HALF the effort. [place] lifts, holds or supports trunk or limbs, but provides less than half the effort. 2-Substantial/Maximal Assistance-helper does MORE THAN HALF the effort. [place] lifts or holds trunk or limbs and provides more than half the effort. 3-Zxgfjpisf-irzhhm does ALL the effort. Patient does none of the effort to complete the activity. Or, the assistance of 2 or more helpers is required for the patient to complete the activity. If activity was not attempted, code reason: 7-Patient Refused. 9-Not Applicable-not attempted and the patient did not perform the activity before the current illness, exacerbation or injury. 10-Not Attempted due to Environmental Limitations-(lack of equipment, weather restraints, etc.). 88-Not Attempted due to Medical Conditions or Safety Concerns. all TRFs mod I Weight Bearing Full Weight Bearing Full Weight Bearing NWB RUE Gait Training Gait Assistive Device: None up indep about unit, comes to gym to meet therapist at designated time, challenged with side step, retro gait, 360 degree turns and balance challenges all with no LOB Exercises NuStep Minutes: 10 NuStep Workload: 5 Treatments leg presses on Nustep x 12 Assessment Current Status: Good Progress meets goals PT Short Term Goals Short Term Goals Time Frame: Jun 30, 2020 Roll Left & Right: 6 Sit to lyin Lying to sitting on side of be: 6 Sit to stand: 6 Chair/oyd-vm-filgo transfer: 6 Walk 10 feet: 6 Walk 50 feet with two turns: 6 Walk 150 feet: 6 1 step (curb): 6 4 steps: 6 12 steps: 6 PT Senior Quality Manager Goals Intermediate Goals PT Intermediate Goals Time Frame: Jul 14, 2020 Roll Left & Right (QC): 6 Sit to Lying (QC): 6 Lying-Sitting on Side/Bed(QC): 6 Sit to Stand (QC): 6 Chair/Ycg-mn-Gcgkl Xfer(QC): 6 Toilet Transfer (QC): 6 Car Transfer (QC): 6 Does the Patient Walk: Yes Walk 10 feet (QC): 6 Walk 50ft with 2 Turns (QC): 6 Walk 150 ft (QC): 6 Walking 10ft on Uneven Surface: 6 1 Step (curb) (QC): 6 4 Steps (QC): 6 12 Steps (QC): 6 Picking up an Object (QC): 88 Wheel 50 feet with 2 turns (QC: 9 Wheel 150 feet: 9 PT Plan Treatment/Plan Treatment Plan: Continue Plan of Care Treatment Plan: Education, Functional Activity Raul, Functional Strength, Group Therapy, Gait, Safety, Therapeutic Exercise, Transfers Treatment Duration: Jul 14, 2020 Frequency: At least 5 of 7 days/Wk (IRF) Estimated Hrs Per Day: 1.5 hours per day Patient and/or Family Agrees t: Yes Safety Risks/Education Patient Education: Correct Positioning, Safety Issues Time/GCodes Time In: 1400 Time Out: 1430 Total Billed Treatment Time: 30 Total Billed Treatment 1,GT15m,EX15m DOMONIQUE CORRAL PTA Jul 02, 2020 15:01
[2020-07-02] MEDS: DOCUSATE SODIUM 100 MG (COLACE) CAP PO PRN (16:50)
[2020-07-02 18:00] VITALS: BP 116/77
[2020-07-02] MEDS: traZODone 50 MG (DESYREL) TAB PO SCH (20:17)
[2020-07-02] MEDS: PROPRANOLOL 20 MG (INDERAL) TABLET PO PRN (20:18)
[2020-07-03] MEDS: HYDROmorphone (DILAUDID) 2 MG TAB PO PRN ×6 (02:52→21:20)
[2020-07-03 05:11] VITALS: BP 124/60
[2020-07-03] MEDS: PROPRANOLOL 20 MG (INDERAL) TABLET PO PRN ×2 (06:12→21:19)
[2020-07-03] MEDS: GABAPENTIN 600 MG (NEURONTIN) TAB PO SCH ×4 (07:58→21:19)
[2020-07-03] MEDS: SENNA W/DOCUSATE (SENOKOT S) TABLET PO SCH ×2 (07:58→21:19)
[2020-07-03] MEDS: DOCUSATE SODIUM 100 MG (COLACE) CAP PO SCH ×2 (07:58→21:19)
[2020-07-03] MEDS: polyethylene glycoL POWDER 17 GM (MIRALAX) PACK PO SCH ×2 (08:01→21:19)
[2020-07-03] MEDS: BISACODYL 10 MG SUPP (DULCOLAX) PR SCH (08:02)
--- NOTE | 2020-07-03 09:01 | Physical Therapy Daily Note ---
PT Daily Note-Current Subjective Pt laying Supine in bed upon arrival. Pt agrees to PT. Pt has Dr Palacios out of facility so PT/OT co-treat for higher functioning balance activities. Pain Location Body Site: Back Pain Description: Ache Comment: Pt reported when asked, pain w/high funct. movement. Mental Status Patient Orientation: Person, Place, Time, Situation Attachments: Other-See Comments (Lumbar Bace) Transfers SCALE: Activities may be completed with or without assistive devices. 3-Wfpwirxxlo-vfrlsaj completes the activity by him/herself with no assistance from a helper. 5-Set-up or Clean-up Assistance-helper sets up or cleans up; patient completes activity. [employer] assists only prior to or following the activity. 4-Supervision or Touching Assistance-helper provides verbal cues and/or touching/steadying and/or contact guard assistance as patient completes activity. Assistance may be provided throughout the activity or intermittently. 3-Partial/Moderate Assistance-helper does LESS THAN HALF the effort. [employer] lifts, holds or supports trunk or limbs, but provides less than half the effort. 2-Substantial/Maximal Assistance-helper does MORE THAN HALF the effort. [employer] lifts or holds trunk or limbs and provides more than half the effort. 0-Icresyvot-vvtzfd does ALL the effort. Patient does none of the effort to complete the activity. Or, the assistance of 2 or more helpers is required for the patient to complete the activity. If activity was not attempted, code reason: 7-Patient Refused. 9-Not Applicable-not attempted and the patient did not perform the activity before the current illness, exacerbation or injury. 10-Not Attempted due to Environmental Limitations-(lack of equipment, weather restraints, etc.). 88-Not Attempted due to Medical Conditions or Safety Concerns. Lying to Sitting/Side of Bed(Q: 6 Sit to Stand (QC): 6 Weight Bearing Full Weight Bearing Full Weight Bearing NWB RUE Gait Training Does the Patient Walk?: Yes Distance: 150' x2 Walk 10 feet (QC): 6 Walk 50 ft with 2 Turns(QC): 6 Walk 150 ft (QC): 6 Gait Persons Needed: 1 Gait Assistive Device: None Wheelchair Training Does the Pt Use a Wheelchair?: No Treatments Pt takes quick sponge bath and dresses before leaving room. Pt ambulates in hallway then lays for PROM stretching of R UE. After complete, pt completes a couple of balance activities before ambulating to shower room to check shower chair with patient. Pt returns to room at end of tx. All needs met, call light in hand. Co-treat w/OT due to skill of 2 clinicians required which a director of rehabilitation could not perform in order to coordinate UE/LEs and to focus on increasing dynamic standing balance and decreasing fall risk. OT focused on UE placement, assist with balance activity while PT focused on LE placement, gross overall movement, and higher level balance tasks. Assessment Current Status: Good Progress Pt continues to improve with activity tolerance and balance. PT Short Term Goals Short Term Goals Time Frame: Jun 30, 2020 Roll Left & Right: 6 Sit to lyin Lying to sitting on side of be: 6 Sit to stand: 6 Chair/xgu-gh-mgcdc transfer: 6 Walk 10 feet: 6 Walk 50 feet with two turns: 6 Walk 150 feet: 6 1 step (curb): 6 4 steps: 6 12 steps: 6 PT [place] Man Goals Intermediate Goals PT Intermediate Goals Time Frame: Jul 14, 2020 Roll Left & Right (QC): 6 Sit to Lying (QC): 6 Lying-Sitting on Side/Bed(QC): 6 Sit to Stand (QC): 6 Chair/Nsl-hi-Dovqq Xfer(QC): 6 Toilet Transfer (QC): 6 Car Transfer (QC): 6 Does the Patient Walk: Yes Walk 10 feet (QC): 6 Walk 50ft with 2 Turns (QC): 6 Walk 150 ft (QC): 6 Walking 10ft on Uneven Surface: 6 1 Step (curb) (QC): 6 4 Steps (QC): 6 12 Steps (QC): 6 Picking up an Object (QC): 88 Wheel 50 feet with 2 turns (QC: 9 Wheel 150 feet: 9 PT Plan Treatment/Plan Treatment Plan: Continue Plan of Care Treatment Plan: Education, Functional Activity Raul, Functional Strength, Grou p Therapy, Gait, Safety, Therapeutic Exercise, Transfers Treatment Duration: Jul 14, 2020 Frequency: At least 5 of 7 days/Wk (IRF) Estimated Hrs Per Day: 1.5 hours per day Patient and/or Family Agrees t: Yes Safety Risks/Education Patient Education: Transfer Techniques, Correct Positioning, Safety Issues Teaching Recipient: Patient Teaching Methods: Discussion Response to Teaching: Verbalize Understanding Time/GCodes Time In: 800 Time Out: 900 Total Billed Treatment Time: 60 Total Billed Treatment 1, GT (15m), FA x2 (30m) & EX (15m) Co-treat w/OT for 60m EIDS GONSALVES PTA Jul 03, 2020 09:01
--- NOTE | 2020-07-03 09:01 | Occupational Ther Daily Note ---
OT Current Status-Daily Note Subjective Pt in bed, agreeable to OT/PT cotreat in order to focus on higher level balance activities. Pt has an appointment later this morning out of hospital. Pt reported some pain in low back when asked with higher level balance activity, did not rate pain. Mental Status/Objective Patient Orientation: Person, Place, Time, Situation ADL-Treatment Therapy Code Descriptions/Definitions Functional [place] Measure: 0=Not Assessed/NA 4=Minimal Assistance 1=Total Assistance 5=Supervision or Setup 2=Maximal Assistance 6=Modified [place] 3=Moderate Assistance 7=Complete IndependenceSCALE: Activities may be completed with or without assistive devices. 5-Lmooqqdxaf-kgcjfci completes the activity by him/herself with no assistance from a helper. 5-Set-up or Clean-up Assistance-helper sets up or cleans up; patient completes activity. [place] assists only prior to or following the activity. 4-Supervision or Touching Assistance-helper provides verbal cues and/or touching/steadying and/or contact guard assistance as patient completes activity. Assistance may be provided throughout the activity or intermittently. 3-Partial/Moderate Assistance-helper does LESS THAN HALF the effort. [place] lifts, holds or supports trunk or limbs, but provides less than half the effort. 2-Substantial/Maximal Assistance-helper does MORE THAN HALF the effort. [place] lifts or holds trunk or limbs and provides more than half the effort. 8-Zymppesdm-gsaayn does ALL the effort. Patient does none of the effort to complete the activity. Or, the assistance of 2 or more helpers is required for the patient to complete the activity. If activity was not attempted, code reason: 7-Patient Refused. 9-Not Applicable-not attempted and the patient did not perform the activity before the current illness, exacerbation or injury. 10-Not Attempted due to Environmental Limitations-(lack of equipment, weather restraints, etc.). 88-Not Attempted due to Medical Conditions or Safety Concerns. Eating (QC): 6 Upper Body Dressing (QC): 6 Lower Body Dressing (QC): 6 On/Off Footwear: 6 Toileting Hygiene (QC): 6 Toilet Transfer (QC): 6 Other Treatment PT/OT cotreat due to skill of 2 clinicians required which a rehabilitation clerk could not perform in order to coordinate UE/LEs and to focus on increasing dynamic standing balance and decreasing fall risk. OT focused on UE placement, assist with balance activity while PT focused on LE placement, gross overall movement, and higher level balance tasks. Pt laying in bed, transferred EOB then completed dressing and partial sponge bath, independently. Pt ambulated to therapy gym to mat where OT performed gentle PROM to R shoulder for flexion, abduction and external rotation. Pt then performs x15 reps AROM elbow flexion/extension. Pt completed higher level balance activities on uneven surface mat, while batting a balloon back and forth with OT, PT focused on balance. In order to challenge pt further, pt then used a pool noodle to bat balloon in all planes with reaching. Pt completed obstacle course in gym, stepping over objects of various heights and standing on various uneven surfaces. Pt ambulated to shower room and shown bath bench vs bath chair, attempting each. Then returns to room to toilet. Post tx, all needs met, pt in room. Education OT Patient Education: Correct positioning, Modified ADL techniques, Progress toward Goal/Update tx plan, Purpose of tx/functional activities Teaching Recipient: Patient Teaching Methods: Discussion Response to Teaching: Verbalize Understanding OT Short Term Goals Short Term Goals Time Frame: Jun 30, 2020 Shower/bathe self: 4 Upper body dressin Lower body dressin Putting on/taking off footwear: 4 OT [place] [employer] Goals [place] Goals Time Frame: Jul 07, 2020 Eating (QC): 6 Oral Hygiene (QC): 6 Toileting Hygiene (QC): 6 Shower/Bathe Self (QC): 6 Upper Body Dressing (QC): 6 Lower Body Dressing (QC): 6 On/Off Footwear (QC): 6 Additional Goals: 1-Demonstrate ADL Tasks, 2-Verbalize Understanding, 3- ImproveStrength/Raul 1=Demonstrate adherence to instructed precautions during ADL tasks. 2=Patient will verbalize/demonstrate understanding of assistive devices/modifications for ADL. 3=Patient will improve strength/tolerance for activity to enable patient to perform ADL's. OT Education/Plan Problem List/Assessment Assessment: Decreased Activ Tolerance, Decreased UE Strength, Impaired I ADL's Pt would benefit from skilled OT to increase his independence in basic self care to allow him to safely return home to live alone Discharge Recommendations Plan/Recommendations: Continue POC Treatment Plan/Plan of Care Patient would benefit from OT for education, treatment and training to promote independence in ADL's, mobility, safety and/or upper extremity function for ADL's. Plan of Care: ADL Retraining, Functional Mobility, Group Exercise/Act as Ind (activity tolerance, fuunct mobility, strengthening, socialization), UE Funct Exercise/Act, UE Neuromus Re-Ed/Coord Treatment Duration: Jul 07, 2020 Frequency: 5 times per week Estimated Hrs Per Day: 1.5 hours per day Rehab Potential: Good Time/GCodes Start Time: 08:00 Stop Time: 09:00 Total Time Billed (hr/min): 60 Billed Treatment Time OT/PT cotreat x60' 1, ADL (15'), FA 3 (45') DENISE CARIAS OT Jul 03, 2020 09:01
[2020-07-03] MEDS ORDERED: ENOXAPARIN 40 MG/0.4 ML (LOVENOX) SYR SC NR (10:21)
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
[2020-07-03] MEDS: DOCUSATE SODIUM 100 MG (COLACE) CAP PO PRN (13:59)
--- NOTE | 2020-07-03 14:50 | Occupational Ther Daily Note ---
OT Current Status-Daily Note Subjective Pt AxO, agrees to OT tx. States no pain currently, though slight discomfort during PROM/ AAROM. Mental Status/Objective Patient Orientation: Person, Place, Situation, Normal For Age ADL-Treatment Therapy Code Descriptions/Definitions Functional [place] Measure: 0=Not Assessed/NA 4=Minimal Assistance 1=Total Assistance 5=Supervision or Setup 2=Maximal Assistance 6=Modified [place] 3=Moderate Assistance 7=Complete IndependenceSCALE: Activities may be completed with or without assistive devices. 4-Dqqlogames-kduqjyq completes the activity by him/herself with no assistance from a helper. 5-Set-up or Clean-up Assistance-helper sets up or cleans up; patient completes activity. [place] assists only prior to or following the activity. 4-Supervision or Touching Assistance-helper provides verbal cues and/or touching/steadying and/or contact guard assistance as patient completes activity. Assistance may be provided throughout the activity or intermittently. 3-Partial/Moderate Assistance-helper does LESS THAN HALF the effort. [place] li fts, holds or supports trunk or limbs, but provides less than half the effort. 2-Substantial/Maximal Assistance-helper does MORE THAN HALF the effort. [place] lifts or holds trunk or limbs and provides more than half the effort. 3-Hjdmftqqs-sndhkd does ALL the effort. Patient does none of the effort to complete the activity. Or, the assistance of 2 or more helpers is required for the patient to complete the activity. If activity was not attempted, code reason: 7-Patient Refused. 9-Not Applicable-not attempted and the patient did not perform the activity before the current illness, exacerbation or injury. 10-Not Attempted due to Environmental Limitations-(lack of equipment, weather restraints, etc.). 88-Not Attempted due to Medical Conditions or Safety Concerns. Eating (QC): 6 (Pt orders food with IND during session. Compeltes with IND.) Other Treatment Pt denies ADLs, agrees to tx in gym, stating desire for PROM. Pt had appt this am to remove anu from shoulder. Pt completes bed mob with CGA to lower supine to mat. Pt's R shoulder PROM'd to ~90* shoulder flexion/ shoulder abduction to pt's tolerance 20x each. Pt is educated on self AAROM with L assisting R to shoulder flexion. Pt able to complete correctly to ~70* and lowers, completes 5x. Pt proceeds to // bars, doing shoulder pendulums with minimal cues. pendulums in shoulder flexion/ ext, ab/ adduction, and clockwise/ counterclockwise circles with gravity assist. Pt ambulates to room with IND, completes feeding with IND. All needs met. Education OT Patient Education: Correct positioning, Exercise program, Home exercise program, Progress toward Goal/Update tx plan, Purpose of tx/functional activities, Reviewed precautions Teaching Recipient: Patient Teaching Methods: Demonstration, Discussion Response to Teaching: Verbalize Understanding, Return Demonstration OT Short Term Goals Short Term Goals Time Frame: Jun 30, 2020 Shower/bathe self: 4 Upper body dressin Lower body dressin Putting on/taking off footwear: 4 OT [facility] Goals [place] Goals Time Frame: Jul 07, 2020 Eating (QC): 6 Oral Hygiene (QC): 6 Toileting Hygiene (QC): 6 Shower/Bathe Self (QC): 6 Upper Body Dressing (QC): 6 Lower Body Dressing (QC): 6 On/Off Footwear (QC): 6 Additional Goals: 1-Demonstrate ADL Tasks, 2-Verbalize Understanding, 3- ImproveStrength/Raul 1=Demonstrate adherence to instructed precautions during ADL tasks. 2=Patient will verbalize/demonstrate understanding of assistive devices/modifications for ADL. 3=Patient will improve strength/tolerance for activity to enable patient to perform ADL's. OT Education/Plan Problem List/Assessment Assessment: Decreased UE Strength, Impaired I ADL's, Restricted Funct UE ROM Pt would benefit from skilled OT to increase his independence in basic self care to allow him to safely return home to live alone Discharge Recommendations Plan/Recommendations: Continue POC Therapy Discharge Recommendati: Home & Family Treatment Plan/Plan of Care Treatment,Training & Education: Yes Patient would benefit from OT for education, treatment and training to promote independence in ADL's, mobility, safety and/or upper extremity function for ADL's. Plan of Care: ADL Retraining, Functional Mobility, Group Exercise/Act as Ind (activity tolerance, fuunct mobility, strengthening, socialization), UE Funct Exercise/Act, UE Neuromus Re-Ed/Coord Treatment Duration: Jul 07, 2020 Frequency: 5 times per week Estimated Hrs Per Day: 1.5 hours per day Rehab Potential: Good Time/GCodes Start Time: 14:15 Stop Time: 14:45 Total Time Billed (hr/min): 30 Billed Treatment Time 1, EX 2 (30) PIO PEÑA OTR Jul 03, 2020 14:50
[2020-07-03 16:00] VITALS: BP 113/59
--- NOTE | 2020-07-03 16:09 | Physical Therapy Daily Note ---
PT Daily Note-Current Subjective Pt sitting up in bed upon arrival. Pt agrees to PT. Pain Location: Lower Location Body Site: Back Pain Description: Ache Comment: Pt reports achiness in back but doesn't rate. Mental Status Patient Orientation: Person, Place, Time, Situation Attachments: Other-See Comments (Lumbar Brace) Transfers SCALE: Activities may be completed with or without assistive devices. 8-Cgxdrhjcwr-marprlr completes the activity by him/herself with no assistance from a helper. 5-Set-up or Clean-up Assistance-helper sets up or cleans up; patient completes activity. [place] assists only prior to or following the activity. 4-Supervision or Touching Assistance-helper provides verbal cues and/or touching/steadying and/or contact guard assistance as patient completes activity. Assistance may be provided throughout the activity or intermittently. 3-Partial/Moderate Assistance-helper does LESS THAN HALF the effort. [place] lifts, holds or supports trunk or limbs, but provides less than half the effort. 2-Substantial/Maximal Assistance-helper does MORE THAN HALF the effort. [place] lifts or holds trunk or limbs and provides more than half the effort. 8-Lxbobtnul-ovtuzm does ALL the effort. Patient does none of the effort to complete the activity. Or, the assistance of 2 or more helpers is required for the patient to complete the activity. If activity was not attempted, code reason: 7-Patient Refused. 9-Not Applicable-not attempted and the patient did not perform the activity before the current illness, exacerbation or injury. 10-Not Attempted due to Environmental Limitations-(lack of equipment, weather restraints, etc.). 88-Not Attempted due to Medical Conditions or Safety Concerns. Sit to Stand (QC): 6 Weight Bearing Full Weight Bearing Full Weight Bearing NWB RUE Gait Training Does the Patient Walk?: Yes Distance: 150' Walk 10 feet (QC): 6 Walk 50 ft with 2 Turns(QC): 6 Walk 150 ft (QC): 6 Gait Persons Needed: 0 Gait Assistive Device: None Wheelchair Training Does the Pt Use a Wheelchair?: No Exercises Standing: Hip Abduction, Heel/toe raises, 3 way Ex=Flex, Abd, Ext, Marching, Mini squats, Weight shifts Treatments Pt trasnfers to standing then dons brace. Pt amb. in hallway to Therapy Gym. Pt completes Standing EX at //bars as well as backward walking in hallway. Pt returns to room with all needs met, call light in hand. Assessment Current Status: Excellent Progress Pt has improved with strength, activity tolerance, balance and even pain control and is ready to DC tomorrow. PT Short Term Goals Short Term Goals Time Frame: Jun 30, 2020 Roll Left & Right: 6 Sit to lyin Lying to sitting on side of be: 6 Sit to stand: 6 Chair/qfy-xx-tquqg transfer: 6 Walk 10 feet: 6 Walk 50 feet with two turns: 6 Walk 150 feet: 6 1 step (curb): 6 4 steps: 6 12 steps: 6 PT Application Security Engineer Goals Application Security Engineer Goals PT Application Security Engineer Goals Time Frame: Jul 14, 2020 Roll Left & Right (QC): 6 Sit to Lying (QC): 6 Lying-Sitting on Side/Bed(QC): 6 Sit to Stand (QC): 6 Chair/Xfy-ny-Dmqbu Xfer(QC): 6 Toilet Transfer (QC): 6 Car Transfer (QC): 6 Does the Patient Walk: Yes Walk 10 feet (QC): 6 Walk 50ft with 2 Turns (QC): 6 Walk 150 ft (QC): 6 Walking 10ft on Uneven Surface: 6 1 Step (curb) (QC): 6 4 Steps (QC): 6 12 Steps (QC): 6 Picking up an Object (QC): 88 Wheel 50 feet with 2 turns (QC: 9 Wheel 150 feet: 9 PT Plan Treatment/Plan Treatment Plan: Continue Plan of Care Treatment Plan: Education, Functional Activity Raul, Functional Strength, Group Therapy, Gait, Safety, Therapeutic Exercise, Transfers Treatment Duration: Jul 14, 2020 Frequency: At least 5 of 7 days/Wk (IRF) Estimated Hrs Per Day: 1.5 hours per day Patient and/or Family Agrees t: Yes Time/GCodes Time In: 1515 Time Out: 1545 Total Billed Treatment Time: 30 Total Billed Treatment 1, GT (15m) & EX (15m) EDIS GONSALVES PTA Jul 03, 2020 16:09
[2020-07-03] MEDS: ACETAMINOPHEN 325 MG TABLET PO PRN (18:56)
[2020-07-03] MEDS: traZODone 50 MG (DESYREL) TAB PO SCH (21:19)
[2020-07-04] MEDS: HYDROmorphone (DILAUDID) 2 MG TAB PO PRN ×4 (00:46→12:43)
[2020-07-04] MEDS ORDERED: HYDR2TAB6 PO ×2 (05:47→09:19)
[2020-07-04] MEDS ORDERED: SENN1TAB76 PO ×2 (05:47→09:19)
[2020-07-04] MEDS ORDERED: FENT1PAT8 TD ×2 (05:47→09:19)
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
[2020-07-04 05:53] VITALS: BP 99/58
[2020-07-04] MEDS: GABAPENTIN 600 MG (NEURONTIN) TAB PO SCH ×2 (09:06→12:47)
[2020-07-04] MEDS: DOCUSATE SODIUM 100 MG (COLACE) CAP PO SCH ×2 (09:06→12:43)
[2020-07-04] MEDS: SENNA W/DOCUSATE (SENOKOT S) TABLET PO SCH (09:08)
[2020-07-04] MEDS: BISACODYL 10 MG SUPP (DULCOLAX) PR SCH (09:28)
[2020-07-04] MEDS: polyethylene glycoL POWDER 17 GM (MIRALAX) PACK PO SCH (09:28)
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
[2020-07-04] MEDS ORDERED: ENOXAPARIN 40 MG/0.4 ML (LOVENOX) SYR SC NR (11:30)
[2020-07-04] MEDS: fentaNYL PATCH 25 MCG (DURAGESIC) TD SCH (12:44)
[2020-07-04 13:00] VITALS: BP 99/58
[2020-07-04] MEDS ORDERED: HYDR2TAB30 PO (13:09)
[2020-07-04] MEDS ORDERED: FENT1PAT57 TD (13:09)
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
== END 2020-07-04 13:15 | disposition home or self-care (01) | DRG 560 ==
PROVIDERS: ADMIT Internal Medicine; ATTEND Internal Medicine
DX: S42.201D Unspecified fracture of upper end of right humerus, subsequent encounter for fracture with routine healing (principal); D62 Acute posthemorrhagic anemia; S32.010D Wedge compression fracture of first lumbar vertebra, subsequent encounter for fracture with routine healing; S27.322D Contusion of lung, bilateral, subsequent encounter; S37.011D Minor contusion of right kidney, subsequent encounter; S01.511D Laceration without foreign body of lip, subsequent encounter; S22.32XD Fracture of one rib, left side, subsequent encounter for fracture with routine healing; F32.9 Major depressive disorder, single episode, unspecified; K59.03 Drug induced constipation; T40.605D Adverse effect of unspecified narcotics, subsequent encounter; Z88.0 Allergy status to penicillin; V47.5XXD Car driver injured in collision with fixed or stationary object in traffic accident, subsequent encounter
CPT/HCPCS: 36415; 80053; 81000; 85025